=== PATIENT | female | born 1985 | race Caucasian/White ===

== ENCOUNTER 2020-03-09 18:48 | Emergency (ER) | payer OTHER, SELFPAY ==
--- NOTE | ~2020-03-09 | CT_ITS ---
EXAMINATION: CTA BRAIN/CAROTID DATE: 03/09/2020 21:55 INDICATION: 4 weeks of severe headache. Visual changes. TECHNIQUE: Computed tomographic angiography (CTA) of the head and neck was performed with 100 mL Omni paque-350 intravenous contrast. Multiplanar reconstructions and maximum intensity projection 3D-recon structions of the carotid arteries and of the intracranial arteries were created by the technologist on a separate workstation. Precontrast CT of the head was also obtained. Automated exposure control and iterative reconstruction technique were employed.The dose-length product was 1547.92 mGy-cm. COMPARISON: Head CT dated 09/05/2011 FINDINGS: Carotid arteries: Visualized portion of the aortic arch is normal. No evident plaque with 0% stenosis of the left or ri ght carotid bulbs relative to normal distal artery lumen diameter (NASCET criteria). Cervical soft ti ssues are unremarkable. Anterior fusion at C5-C6 which may be developmental. Head: No acute intracranial hemorrhage, acute infarction or abnormal extra axial fluid collection. Ventricl es are normal and symmetric. No mass/mass effect. No abnormally enhancing lesions identified. The orb its, paranasal sinuses and mastoid air cells are normal. Intracranial arteries There is no hemodynamically significant stenosis in the vertebral, basilar and internal carotid arter ies. Vertebral arteries are codominant. There are no aneurysms identified. Both A1 and P1 segments a re patent. Cerebral arterial arborization appears symmetric. IMPRESSION: 1. No appreciable atherosclerotic plaque with 0% stenosis of the left and right carotid bulbs relativ e to normal distal artery lumen diameter (NASCET criteria). 2. Normal brain. No acute intracranial process. 3. Normal cerebral angiogram with no evident stenosis or aneurysm. Reviewed, dictated and finalized at location A. IMPRESSION: 1. No appreciable atherosclerotic plaque with 0% stenosis of the left and right carotid bulbs relative to normal distal artery lumen diameter (NASCET criteria ). 2. Normal brain. No acute intracranial process. 3. Normal cerebral angiogram with no evident stenosis or aneurysm.
[2020-03-09 18:53] VITALS: BP 116/80; PULSE 81; RESP 18; TEMP 36.4; O2SAT 100
--- NOTE | 2020-03-09 19:50 | ED.HA ---
HPI - Headache General Chief Complaint: Headache Stated Complaint: juárez x 4 weeks Time Seen by Provider: 03/09/20 19:00 Source: patient Mode of arrival: ambulatory Limitations: no limitations History of Present Illness HPI Narrative: This patient is a 34 year old female who presents for evaluation of headache x 4 weeks. She has constant headache located right frontal scalp to right eye and ear that has gradually worsened. She has associated nausea, blurred vision with white spots, watery eye constant for 4 weeks. She denies focal weakness, numbness or tingling. She was evaluated by her PCP on 03/02/20 and she was prescribed sumatriptan and fiorcet. She reports these are not helping so she has come to ER for evaluation. MD elicited complaint: headache Related Data Home Medications Medication Instructions Recorded Confirmed cetirizine 10 mg tablet 10 mg PO DAILY 08/09/19 03/02/20 fluoxetine 40 mg capsule 80 mg PO DAILY cap 08/09/19 03/02/20 norethindrone acetate 1 mg-ethinyl 1 tablet PO DAILY 08/09/19 03/02/20 estradiol 20 mcg tablet Allergies Allergy/AdvReac Type Severity Reaction Status Date / Time duloxetine Allergy Unknown Nausea Verified 03/09/20 18:56 egg Allergy Unknown Nausea Verified 03/09/20 18:56 latex Allergy Unknown Skin Verified 03/09/20 18:56 Reaction mirabegron Allergy Unknown Unknown Verified 03/09/20 18:56 sulfamethizole Allergy Unknown Nausea Verified 03/09/20 18:56 Review of Systems Review of Systems: All systems reviewed & are unremarkable except as noted in HPI and below Constitutional: Constitutional: Denies chills, Denies fever(s) and Denies weakness Eyes: Eyes: Reports change in vision and Reports photophobia ENT: Denies nasal congestion and Denies sore throat Gastrointestinal: Gastrointestinal: Denies abdominal pain, Reports nausea and Denies vomiting Neurologic: Denies dizziness, Reports headache(s), Denies focal weakness, Denies numbness and Denies weakness PMFSH Social History Social History (Reviewed 03/02/20 @ 16:39 by Sheryl Soler [facility]) Smoking status: Never smoker Alcohol intake: never Gender identity (if verbalized by the patient): Female Exam Narrative: Exam Narrative: GENERAL: Well-appearing, well-nourished, and in no acute distress. HEAD: Normocephalic, atraumatic , mild tenderness along right frontal hair line EYES: PERRLA and EOMI, conjunctiva clear without discharge EARS: TM's clear bilaterally without erythema or dullness NOSE: Nares clear, no rhinorrhea or epistaxis THROAT:Mucous membranes moist, Oropharynx normal without erythema, exudate, peritonsillar swelling or fluctuance NECK: Supple, without lymphadenopathy or mass RESPIRATORY: No respiratory distress, Airway patent, Respirations non-labored, Clear to auscultation without rales, rhonchi or wheeze HEART: Regular rate and rhythm. No murmur heard. Normal peripheral pulses. ABDOMEN: Soft, nontender, nondistended, normal active bowel sounds. No masses. No rebound or guarding, No organomegaly. EXTREMITIES: No edema, normal strength with full range of motion. SKIN: Warm, dry, normal color without rash NEURO: Alert and oriented x3. CN 2-12 grossly intact. No focal deficits. PSYCH: Normal mood and affect. Course Reevaluation(s) Reevaluation #1: Patient has normal visual acuity, intra ocular pressure and appears to be localized. No aneursym found, normal eye exam. She was found to have low wbc so may be this is viral causing. pain appears to be along nerve possible branch V1 . Date: 03/10/20 Time: 00:06 Vital Signs Vital signs: Vital Signs Temperature 97.6 F 03/09/20 18:53 Pulse Rate 81 03/09/20 18:53 Respiratory Rate 18 03/09/20 18:53 Blood Pressure 116/80 03/09/20 18:53 Pulse Oximetry 100 03/09/20 18:53 Temperature 97.6 F 03/09/20 18:53 Pulse Rate 78 03/10/20 00:24 Respiratory Rate 18 03/10/20 00:24 Blood Pressure 132/70 03/10/20 00:24 P
[2020-03-09] MEDS: KETOROLAC 30 MG/ML VIAL (*BKC) IV PUSH (20:08)
[2020-03-09] MEDS: METOCLOPRAMIDE HCL INJ 10 MG/2 ML VIAL IV PUSH (20:09)
[2020-03-09] MEDS: LACTATED RINGERS 1,000 ML 999 ML IV CONT (20:11)
[2020-03-09 20:18] VITALS: BP 113/82; PULSE 84; RESP 24; O2SAT 100
[2020-03-09 20:25] LABS: Basophils Percent Auto 0.3 % (0.2-1.2); Eosinophils Percent Auto 0.5 % (0-4.4); Hematocrit 36.6 % (37.0-47.0); Immature Granulocyte Absolute 0.01 K/mm3 (0.00-0.031); Immature Granulocyte Percent A 0.3 % (0-0.5); Lymphocytes Absolute Auto 1.92 K/mm3 (0.9-3.2); Lymphocytes Percent Auto 49.9 % (18.3-44.2); Mean Corpuscular HGB Conc 32.8 g/dl (32-36); Mean Corpuscular Hemoglobin 29.4 pg (26-34); Mean Corpuscular Volume 89.7 fl (80-100); Mean Platelet Volume 9.3 fl (7.4-10.4); Monocytes Absolute Auto 0.3 K/mm3 (0.1-0.6); Neutrophils Absolute Auto 1.6 K/mm3 (1.3-6.7); Platelet Count Result 222 k/mm3 (150-375); Red Blood Count 4.08 M/mm3 (4.2-5.4); Red Cell Distribution Width 13.5 % (11.5-14.5); White Blood Count 3.9 K/mm3 (4.5-10.0)
[2020-03-09 20:39] LABS: Alanine Aminotransferase 17 U/L (4-35); Alkaline Phosphatase 71 U/L (38-126); Aspartate Amino Transferase 28 U/L (14-36); Bilirubin,Total 0.2 mg/dL (0.2-1.3); Blood Urea Nitrogen 10 mg/dL (7-17); CRP 1.1 mg/dL (<1.0); Calcium 8.5 mg/dL (8.4-10.2); Carbon Dioxide 22 mmol/L (22-30); Chloride 106 mmol/L (98-107); Estimated CRCL calculation 79 ml/min; Estimated Glomerular Filt Rate > 60; Glucose 90 mg/dL (65-105); Potassium 3.8 mmol/L (3.4-5.0); Sodium 137 mmol/L (137-145)
[2020-03-09 20:48] LABS: Erythrocyte Sedimentation Rate 20 mm/hr (0-20)
[2020-03-09 22:18] VITALS: BP 94/58; PULSE 84; RESP 18; O2SAT 99
[2020-03-09] MEDS: ONDANSETRON INJ 4 MG/2 ML VIAL IV PUSH (23:05)
[2020-03-09] MEDS: HYDROMORPHONE HCL 1 MG/ML INJ 0.5 MG IV PUSH (23:05)
[2020-03-10 00:24] VITALS: BP 132/70; PULSE 78; RESP 18; O2SAT 98
== END 2020-03-10 00:24 | disposition home or self-care (01) ==
PROVIDERS: Emergency Provider General Practice; PCP Family Medicine
DX: R51 Headache (principal)
CPT/HCPCS: 36415; 70496; 70498; 80053; 81025; 85025; 85652; 86140; 96361; 96374; 96375; 99284; J0131; J1170; J1200; J1885; J2405; J2765; J7120; Q9967

== ENCOUNTER 2020-07-18 22:00 | Emergency (ER) | payer OTHER, SELFPAY ==
--- NOTE | ~2020-07-18 | CT_ITS ---
EXAMINATION: CT abdomen pelvis w con DATE: 07/18/2020 23:20 INDICATION: Left flank pain, nausea, vomiting and diarrhea TECHNIQUE: Computed tomography (CT) of the abdomen and pelvis was performed with 100 cc Omnipaque 350 intravenous contrast. The dose-length product was 591.94 mGy-cm. Automated exposure control and iter ative reconstruction technique were employed. COMPARISON: CT dated 09/02/2019 FINDINGS: Lung bases are normal. Heart size normal. No significant pleural or pericardial effusion. G allbladder is present. No significant vascular abnormality. No lymphadenopathy. The liver, spleen, pancreas, adrenal glands are unremarkable. There are nonobstructing bilateral genevieve l stones. There is a subcentimeter hypodensity of the left kidney, most likely benign cysts. Nonobstr uctive bowel gas pattern. No abnormal pelvic masses or fluid collections. No free air or free fluid. No acute osseous abnormality. IMPRESSION: 1. No acute abdominal abnormality. Reviewed, dictated and finalized at location A.
--- NOTE | ~2020-07-18 | XR_ITS ---
EXAMINATION: XR chest 2V 07/18/2020 23:23 INDICATION: Dyspnea. PROCEDURE: 2 view chest COMPARISON: No prior studies for comparison. FINDINGS: The lungs are clear. The cardiomediastinal silhouette is within normal limits. There are no pleural effusions. There is no pneumothorax suspected. IMPRESSION: 1: NO ACUTE CARDIOPULMONARY DISEASE. Reviewed, dictated and finalized at location A.
[2020-07-18 22:03] VITALS: BP 135/84; PULSE 79; RESP 14; TEMP 36.7; O2SAT 99
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
[2020-07-18 22:42] LABS: Basophils Percent Auto 0.2 % (0.2-1.2); Eosinophils Percent Auto 0.7 % (0-4.4); Hematocrit 38.7 % (37.0-47.0); Hemoglobin 12.8 g/dL (12.0-15.0); Lymphocytes Absolute Auto 2.04 K/mm3 (0.9-3.2); Lymphocytes Percent Auto 44.6 % (18.3-44.2); Mean Corpuscular HGB Conc 33.1 g/dl (32-36); Mean Corpuscular Hemoglobin 30.4 pg (26-34); Mean Corpuscular Volume 91.9 fl (80-100); Mean Platelet Volume 9.3 fl (7.4-10.4); Monocytes Absolute Auto 0.4 K/mm3 (0.1-0.6); Monocytes Percent Auto 7.7 % (2.6-8.5); Neutrophils Absolute Auto 2.1 K/mm3 (1.3-6.7); Neutrophils Percent Auto 46.8 % (45.5-73.1); Platelet Count Result 192 k/mm3 (150-375); Red Blood Count 4.21 M/mm3 (4.2-5.4); Red Cell Distribution Width 13.2 % (11.5-14.5); White Blood Count 4.6 K/mm3 (4.5-10.0)
[2020-07-18] MEDS: SODIUM CHLORIDE 0.9% IV 1,000 ML 999 ML IV CONT (22:49)
[2020-07-18 22:53] LABS: Alanine Aminotransferase 18 U/L (4-35); Alkaline Phosphatase 66 U/L (38-126); Anion Gap 7 mmol/L (8-16); Aspartate Amino Transferase 30 U/L (14-36); Bilirubin,Total 0.4 mg/dL (0.2-1.3); Blood Urea Nitrogen 9 mg/dL (7-17); Calcium 8.4 mg/dL (8.4-10.2); Carbon Dioxide 27 mmol/L (22-30); Chloride 103 mmol/L (98-107); Estimated CRCL calculation 82 ml/min; Estimated Glomerular Filt Rate > 60; Glucose 87 mg/dL (65-105); Potassium 3.5 mmol/L (3.4-5.0); Sodium 137 mmol/L (137-145)
[2020-07-18] MEDS: MORPHINE SULFATE (*CRX) 4 MG/ML INJ IV PUSH (22:53)
[2020-07-18] MEDS: ONDANSETRON INJ 4 MG/2 ML VIAL IV PUSH (22:53)
[2020-07-18 22:56] VITALS: BP 117/80; PULSE 80; RESP 16; O2SAT 100
[2020-07-18 23:21] LABS: Add Urine Microscopic? YES; Appearance Urine Cloudy (Clear); Bacteria Urine Trace /hpf; Bilirubin Urine Negative (Negative); Blood Urine 1+ (Negative); Color Urine Yellow (Yellow); Glucose Urine UA Negative (Negative); Ketones Urine Negative (Negative); Leukocyte Esterase Ur 3+ LEU/UL (Negative); Mucus Urine Moderate /lpf; Nitrate Urine Negative (Negative); Protein Urine 1+ mg/dL (Negative); Squamous Epithelial Cell Urine Many /hpf (Few); Urobilinogen Urine Negative mg/dL (<2.0); WBC Urine 31-50 /hpf
[2020-07-18 23:31] LABS: Specific Grav Ur 1.043 (1.001-1.035)
[2020-07-19 00:59] VITALS: BP 128/72; PULSE 68; RESP 16; O2SAT 99
== END 2020-07-19 01:00 | disposition home or self-care (01) ==
PROVIDERS: Emergency Provider Emergency Medicine; PCP Family Medicine
DX: N30.01 Acute cystitis with hematuria (principal); Z87.442 Personal history of urinary calculi
CPT/HCPCS: 36415; 71046; 74177; 80053; 81001; 81025; 85025; 87086; 96361; 96365; 96375; 99284; J0131; J0696; J2270; J2405; J7030; Q9967

== ENCOUNTER 2020-08-20 02:01 | Emergency (ER) | payer OTHER, SELFPAY ==
[2020-08-20 02:03] VITALS: BP 121/97; PULSE 72; RESP 16; TEMP 36.2; O2SAT 100
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
[2020-08-20] MEDS: PROCHLORPERAZINE EDISYLATE 10 MG/2 ML VIAL IV PUSH (02:34)
[2020-08-20] MEDS: KETOROLAC 30 MG/ML VIAL (*BKC) IV PUSH (02:35)
[2020-08-20] MEDS: diphenhydrAMINE HCl INJ 50 MG/ML VIAL IV PUSH ×2 (02:36→02:53)
[2020-08-20] MEDS: DEXAMETHASONE SOD PHOS INJ 4 MG/ML VIAL 10 MG IV PUSH (02:38)
[2020-08-20 02:47] VITALS: BP 125/78
[2020-08-20 02:49] VITALS: O2SAT 98
[2020-08-20 03:00] VITALS: O2SAT 98
[2020-08-20 03:15] VITALS: O2SAT 98
[2020-08-20] MEDS: METOCLOPRAMIDE HCL INJ 10 MG/2 ML VIAL IV PUSH (03:30)
[2020-08-20] MEDS: SUMAtriptan SUCCINATE 6 MG/0.5 ML VIAL SUB-Q (03:31)
[2020-08-20 05:00] VITALS: BP 126/69; PULSE 68; RESP 16; O2SAT 98
== END 2020-08-20 05:01 | disposition home or self-care (01) ==
PROVIDERS: Emergency Provider Emergency Medicine; PCP Family Medicine
DX: R51.9 Headache, unspecified (principal); Z87.442 Personal history of urinary calculi
CPT/HCPCS: 96372; 96374; 96375; 99284; J0780; J1100; J1200; J1885; J2765; J3030

== ENCOUNTER 2020-09-06 08:03 | Emergency (ER) | payer OTHER, SELFPAY ==
[2020-09-06 08:06] VITALS: BP 132/91; PULSE 88; RESP 20; TEMP 36.8; O2SAT 100
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
[2020-09-06] MEDS: diphenhydrAMINE HCl INJ 50 MG/ML VIAL 25 MG IV PUSH (08:37)
[2020-09-06] MEDS: KETOROLAC 30 MG/ML VIAL (*BKC) IV PUSH (08:37)
[2020-09-06] MEDS: SODIUM CHLORIDE 0.9% IV 1,000 ML 999 ML IV CONT (08:37)
[2020-09-06] MEDS: LORazepam INJ (*CRX) 2 MG/ML VIAL 0.5 MG IV PUSH (08:38)
[2020-09-06] MEDS: METOCLOPRAMIDE HCL INJ 10 MG/2 ML VIAL IV PUSH (08:38)
[2020-09-06 08:40] LABS: Hematocrit 42.7 % (37.0-47.0); Hemoglobin 14.4 g/dL (12.0-15.0); Immature Granulocyte Absolute 0.02 K/mm3 (0.00-0.031); Immature Granulocyte Percent A 0.4 % (0-0.5); Lymphocytes Absolute Auto 1.14 K/mm3 (0.9-3.2); Lymphocytes Percent Auto 21.4 % (18.3-44.2); Mean Corpuscular HGB Conc 33.7 g/dl (32-36); Mean Corpuscular Hemoglobin 30.5 pg (26-34); Mean Corpuscular Volume 90.5 fl (80-100); Mean Platelet Volume 9.7 fl (7.4-10.4); Monocytes Absolute Auto 0.3 K/mm3 (0.1-0.6); Neutrophils Absolute Auto 3.8 K/mm3 (1.3-6.7); Neutrophils Percent Auto 72.2 % (45.5-73.1); Platelet Count Result 232 k/mm3 (150-375); Red Blood Count 4.72 M/mm3 (4.2-5.4); Red Cell Distribution Width 12.6 % (11.5-14.5); White Blood Count 5.3 K/mm3 (4.5-10.0)
[2020-09-06 08:46] LABS: Add Urine Microscopic? YES; Appearance Urine Cloudy (Clear); Bacteria Urine Trace /hpf; Bilirubin Urine Negative (Negative); Blood Urine Negative (Negative); Color Urine Yellow (Yellow); Glucose Urine UA Negative (Negative); Ketones Urine Negative (Negative); Leukocyte Esterase Ur 3+ LEU/UL (Negative); Mucus Urine Rare /lpf; Nitrate Urine Negative (Negative); Protein Urine 1+ mg/dL (Negative); Specific Grav Ur 1.013 (1.001-1.035); Squamous Epithelial Cell Urine Many /hpf (Few); Transitional Epi Cells Urine Rare /hpf (None Seen); Urobilinogen Urine Negative mg/dL (<2.0); WBC Urine >75 /hpf
[2020-09-06 08:58] LABS: Anion Gap 8 mmol/L (8-16); Blood Urea Nitrogen 8 mg/dL (7-17); Calcium 9.3 mg/dL (8.4-10.2); Carbon Dioxide 25 mmol/L (22-30); Chloride 105 mmol/L (98-107); Estimated CRCL calculation 92 ml/min; Estimated Glomerular Filt Rate > 60; Glucose 101 mg/dL (65-105); Sodium 138 mmol/L (137-145)
[2020-09-06 09:58] VITALS: BP 105/71; PULSE 82; RESP 18; O2SAT 100
== END 2020-09-06 10:00 | disposition home or self-care (01) ==
PROVIDERS: Emergency Provider Emergency Medicine; PCP Family Medicine
DX: R51.9 Headache, unspecified (principal); M79.602 Pain in left arm; M79.601 Pain in right arm; M79.605 Pain in left leg; M79.604 Pain in right leg; Z87.442 Personal history of urinary calculi; R82.998 Other abnormal findings in urine
CPT/HCPCS: 36415; 80048; 81001; 85025; 87086; 87088; 96361; 96374; 96375; 99284; J1200; J1885; J2060; J2765; J7030

== ENCOUNTER 2020-10-05 00:54 | Outpatient (CLI) | payer OTHER, SELFPAY ==
[2020-10-05 18:46] LABS: SARS-CoV-2 RNA PCR Negative
== END 2020-10-05 00:55 | disposition home or self-care (01) ==
LOC: ANHCOVIDDT 00:55
PROVIDERS: PCP Family Medicine; Visit Provider Obstetrics & Gynecology
DX: Z01.812 Encounter for preprocedural laboratory examination (principal); Z20.822 Contact with and (suspected) exposure to COVID-19
CPT/HCPCS: C9803; U0003; U0005

== ENCOUNTER 2020-10-05 08:33 | Outpatient (CLI) | payer OTHER, SELFPAY | END 2020-10-05 08:34 | disposition home or self-care (01) | LOC: ANHSURGERY 08:34 | PROVIDERS: PCP Family Medicine; Visit Provider Obstetrics & Gynecology | DX: R10.2 Pelvic and perineal pain (principal) | CPT/HCPCS: 36415; 86850; 86900; 86901 ==

== ENCOUNTER 2020-10-08 02:41 | Day surgery (SDC) | payer OTHER, SELFPAY ==
[2020-10-03 15:22] VITALS: BMI 29.8
[2020-10-08] VITALS (10 sets, daily range): BP systolic 97–126; BP diastolic 70–91; PULSE 71–102; RESP 12–18; TEMP 36.1–36.5; O2SAT 95–100
[2020-10-08] MEDS: ACETAMINOPHEN 500 MG TABLET 1000 MG PO (10:36)
[2020-10-08] MEDS: KETOROLAC 15 MG/ML VIAL (*BKC) IV PUSH (10:49)
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
[2020-10-08] MEDS: LACTATED RINGERS 1,000 ML 30 ML IV CONT ×2 (11:36→12:23)
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
--- NOTE | 2020-10-08 11:42 | WPDHPUPDATE1 ---
History and Physical Update Update Date/Time: 10/08/20 11:42 History and Physical has been reviewed, including an updated exam of the patient. There are NO changes in the patient's condition. Risks, benefits, and alternatives have been discussed and questions answered. Patient agrees to proceed with procedure.
[2020-10-08] MEDS: SCOPOLAMINE 1.5 MG PATCH TRANSDERM (11:44)
[2020-10-08] MEDS: fentaNYL CITRATE INJ (*CRX) 100 MCG/2 ML VIAL 50 MCG IV PUSH (11:44)
--- NOTE | 2020-10-08 12:28 | PM.PROC ---
Procedure Note - Detailed Date of procedure: 10/08/20 Pre-op diagnosis: Pelvic Pain, Endometriosis Cyclic pelvic pain Post-op diagnosis: same Procedure performed: Diagnostic laparoscopy Description of procedure: The patient was taken to the operating room where general endotracheal anesthesia was administered. She was prepared and draped in the usual sterile fashion in the dorsal lithotomy position. The bladder was drained with a red rubber catheter. A sterile speculum was inserted into the vagina and the anterior lip of the cervix was grasped with a single-toothed tenaculum. The acorn uterine manipulator was placed. The speculum was withdrawn. Gloves were changed and attention was turned to the abdomen. An infraumbilical skin incision was made with a scalpel. The abdomen was tented and a 5 millimeter bladeless trocar trocar was advanced under direct laparoscopic visualization. Pneumoperitoneum was administered using carbon dioxide gas. A survey of the pelvis and abdomen yielded the findings noted above. Hemostasis was excellent. The trocar was withdrawn and the gas was allowed to escape. The skin incision was reapproximated using 4-0 Vicryl in interrupted subcuticular fashion. Dermaflex was applied externally. The vaginal instrumentation was withdrawn and hemostasis was excellent here as well. Sponge, lap, needle and instrument counts were correct. The patient was awakened and taken to recovery in stable condition. I was present and scrubbed through the entire procedure. Implants: None Anesthesia: GETA Surgeon: Joseph Camacho MD Estimated blood loss (mL): 5 Drains: No Packing: No Pathology: none sent Complications: None Condition: stable Disposition: PACU Findings: The right upper quadrant anatomy was unremarkable. The vermiform appendix was not able to be visualized. The uterus, bilateral ovaries, bilateral tubes, anterior and posterior cul de sac, bilateral round and uterosacral ligaments were all unremarkable. There was no obvious cause visible to account for the patient's pain. Specifically, there is no finding consistent with endometriosis.
[2020-10-08] MEDS: HYDROmorphone HCL INJ (*CRX) 1 MG/ML SYR 0.5 MG IV PUSH ×7 (12:47→13:38)
[2020-10-08] MEDS: ONDANSETRON INJ 4 MG/2 ML VIAL IV PUSH (13:22)
--- NOTE | 2020-10-08 13:29 | SUR.PHASEI ---
1322; PT C/O NAUSEA. ZOFRAN GIVEN IV. PT STATES PAIN STILL 05/31. PT VERY RELAXED. BLINKING SLOWLY. FLACC=0-1. DILAUDID GIVEN PRN
--- NOTE | 2020-10-08 13:41 | SUR.PHASEI ---
PT AWAKE AND ALERT. STATES SHE HAS BEEN TRYING TO PASS A RT KIDNEY STONE PT STATES SHE SEES A UROLOGIST AND KNOWS SHE HAS A KIDNEY STONE ON THE RIGHT SIDE. STATES PAIN TO ABDOMEN IMPROVING.
[2020-10-08] MEDS: oxyCODONE HCL (*CRX) 5 MG TAB IR PO (14:24)
== END 2020-10-08 14:50 | disposition home or self-care (01) ==
PROVIDERS: PCP Family Medicine; Visit Provider Obstetrics & Gynecology
PROC: (CPT 49320; principal; 2020-10-08 12:00)
DX: R10.2 Pelvic and perineal pain (principal); Z87.442 Personal history of urinary calculi; N81.89 Other female genital prolapse
CPT/HCPCS: 49320; 36415; 86850; 86900; 86901; A9270; C9803; J0330; J1100; J1170; J1885; J2250; J2405; J2704; J3010; J7120; U0003; U0005

== ENCOUNTER 2020-10-22 17:39 | Emergency (ER) | payer OTHER, SELFPAY ==
--- NOTE | ~2020-10-22 | CT_ITS ---
EXAMINATION: CT abdomen pelvis wo con DATE: 10/22/2020 18:13 INDICATION: Abdomen pain. History of kidney stones. Left flank pain. TECHNIQUE: Computed tomography (CT) of the abdomen and pelvis was performed without intravenous contr ast. The dose-length product was 534.95 mGy-cm. Automated exposure control and iterative reconstructi on technique were employed. COMPARISON: CT dated 07/18/2020 FINDINGS: Lung bases are unremarkable. Heart size normal. No significant pleural or pericardial effus ion. No significant vascular abnormality. No lymphadenopathy The liver, spleen, pancreas, adrenal glands are unremarkable. Gallbladder is present. Nonobstructive bowel gas pattern. There are nonobstructing renal stones bilaterally. No ureteral stones or hydroneph rosis. IMPRESSION: 1. No acute abdominal abnormality. 2: Nonobstructing bilateral nephrolithiasis. Reviewed, dictated and finalized at location A.
--- NOTE | ~2020-10-22 | XR_ITS ---
XR abdomen/kub 1V 10/22/2020 18:20 Indication: Left-sided flank pain Procedure: KUB Comparison: Comparison to multiple prior studies sequentially, with oldest reviewed study dated 11/09. Findings: There are bilateral renal stones. Bowel gas pattern nonobstructive. Lung bases unremarkable . No acute osseous abnormality. Impression: 1: Bilateral nephrolithiasis. Reviewed, dictated and finalized at location A. EN ROLLER Impression: 1: Bilateral nephrolithiasis.
[2020-10-22 17:44] VITALS: BP 129/80; PULSE 100; RESP 18; TEMP 36.2; O2SAT 100
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
[2020-10-22 18:10] LABS: Basophils Percent Auto 0.3 % (0.2-1.2); Eosinophils Absolute Auto 0.1 K/mm3 (0-0.3); Eosinophils Percent Auto 0.9 % (0-4.4); Hematocrit 41.3 % (37.0-47.0); Hemoglobin 13.6 g/dL (12.0-15.0); Immature Granulocyte Absolute 0.01 K/mm3 (0.00-0.031); Immature Granulocyte Percent A 0.2 % (0-0.5); Lymphocytes Absolute Auto 2.24 K/mm3 (0.9-3.2); Lymphocytes Percent Auto 38.8 % (18.3-44.2); Mean Corpuscular HGB Conc 32.9 g/dl (32-36); Mean Corpuscular Hemoglobin 30.8 pg (26-34); Mean Corpuscular Volume 93.4 fl (80-100); Mean Platelet Volume 9.7 fl (7.4-10.4); Monocytes Absolute Auto 0.4 K/mm3 (0.1-0.6); Monocytes Percent Auto 7.5 % (2.6-8.5); Neutrophils Percent Auto 52.3 % (45.5-73.1); Platelet Count Result 220 k/mm3 (150-375); Red Blood Count 4.42 M/mm3 (4.2-5.4); Red Cell Distribution Width 12.9 % (11.5-14.5); White Blood Count 5.8 K/mm3 (4.5-10.0)
[2020-10-22 18:19] LABS: Add Urine Microscopic? YES; Appearance Urine Cloudy (Clear); Bacteria Urine Trace /hpf; Bilirubin Urine Negative (Negative); Blood Urine Negative (Negative); Color Urine Yellow (Yellow); Glucose Urine UA Negative (Negative); Ketones Urine Negative (Negative); Leukocyte Esterase Ur 1+ LEU/UL (Negative); Mucus Urine Rare /lpf; Nitrate Urine Negative (Negative); Protein Urine Negative (Negative); Specific Grav Ur 1.016 (1.001-1.035); Squamous Epithelial Cell Urine Many /hpf (Few); Urobilinogen Urine Negative mg/dL (<2.0); WBC Urine 16-20 /hpf
[2020-10-22] MEDS: FAMOTIDINE 20 MG/2 ML VIAL IV PUSH (18:22)
[2020-10-22] MEDS: METOCLOPRAMIDE HCL INJ 10 MG/2 ML VIAL IV PUSH (18:22)
[2020-10-22] MEDS: SODIUM CHLORIDE 0.9% IV 1,000 ML 999 ML IV CONT ×2 (18:23)
[2020-10-22 18:30] LABS: Alanine Aminotransferase 54 U/L (4-35); Albumin Level 4.5 g/dL (3.5-5.1); Alkaline Phosphatase 69 U/L (38-126); Anion Gap 10 mmol/L (8-16); Aspartate Amino Transferase 56 U/L (14-36); Bilirubin,Total 0.4 mg/dL (0.2-1.3); Blood Urea Nitrogen 14 mg/dL (7-17); Calcium 8.9 mg/dL (8.4-10.2); Carbon Dioxide 27 mmol/L (22-30); Chloride 103 mmol/L (98-107); Estimated CRCL calculation 73 ml/min; Estimated Glomerular Filt Rate > 60; Glucose 89 mg/dL (65-105); Lipase 146 U/L (23-300); Potassium 3.6 mmol/L (3.4-5.0); Sodium 140 mmol/L (137-145)
[2020-10-22 19:34] VITALS: BP 132/78; PULSE 87; RESP 16; O2SAT 100
== END 2020-10-22 19:36 | disposition home or self-care (01) ==
PROVIDERS: Emergency Medicine Emergency Medical Services; Emergency Provider Emergency Medicine; PCP Family Medicine
DX: N39.0 Urinary tract infection, site not specified (principal); N80.9 Endometriosis, unspecified; Z87.442 Personal history of urinary calculi; N20.0 Calculus of kidney
CPT/HCPCS: 36415; 74018; 74176; 80053; 81001; 81025; 83690; 85025; 87086; 96361; 96374; 96375; 99284; J0131; J2765; J7030

== ENCOUNTER 2022-11-19 08:01 | Outpatient (CLI) | payer BC, SELFPAY ==
--- NOTE | ~2022-11-19 | MR_ITS ---
EXAMINATION: MR brain/brain stem wo con DATE: 11/19/2022 08:47 INDICATION: Headache. TECHNIQUE: Magnetic resonance imaging (MRI) of the brain and brainstem was performed without intraven ous contrast. COMPARISON: Head CT 03/09/2020 FINDINGS: There is no intracranial hemorrhage, acute infarction, or abnormal intracranial mass lesion . The ventricles are normal in size. There is a trace left mastoid effusion. The orbits are normal. T he paranasal sinuses are clear. IMPRESSION: 1. Normal brain. Reviewed, dictated and finalized at location A. RAISING CONSULTANT IMPRESSION: 1. Normal brain.
== END 2022-11-19 08:02 | disposition home or self-care (01) ==
PROVIDERS: PCP Family Medicine; Visit Provider Family Medicine
DX: G43.001 Migraine without aura, not intractable, with status migrainosus (principal)
CPT/HCPCS: 70551

== ENCOUNTER → 2023-07-27 12:12 | Outpatient (CLI) | payer BC, SELFPAY ==
--- NOTE | ~2023-07-27 | XR_ITS ---
EXAM: XR lumbar spine 2-3V DATE: 07/27/2023 12:56 HISTORY: W18.30XA - Fall on same level, unspecified, initial encou... . COMPARISON: 07/08/2019. FINDINGS: 5 nonrib-bearing lumbar-type vertebral bodies. Pedicles intact. Normal vertebral body alig nment. Vertebral body heights preserved. Disc spaces maintained. Normal facets and posterior elements . No fracture or dislocation. Right nephrolithiasis. IMPRESSION: Unremarkable lumbar spine radiograph findings. Reviewed, dictated and finalized at location K. EDGE BANDER
--- NOTE | ~2023-07-27 | XR_ITS ---
EXAM: XR thoracic spine 2V DATE: 07/27/2023 12:57 HISTORY: W18.30XA - Fall on same level, unspecified, initial encou... . COMPARISON: 07/08/2019. FINDINGS: Vertebral body alignment intact. Vertebral body heights preserved. No disc space narrowing . No traumatic malalignment or fracture. Right nephrolithiasis. Visualized lung parenchyma is clear. IMPRESSION: Unremarkable thoracic spine radiograph findings. Reviewed, dictated and finalized at location K. ERSHIP DEVELOPMENT MANAGER
== END ==
PROVIDERS: PCP Nurse Practitioner Family; Visit Provider Nurse Practitioner Family
DX: M54.50 Low back pain, unspecified (principal); M54.6 Pain in thoracic spine; W18.30XA Fall on same level, unspecified, initial encounter
CPT/HCPCS: 72070; 72100

== ENCOUNTER 2024-11-16 20:03 | Emergency (ER) | payer BC, SELFPAY ==
--- NOTE | ~2024-11-16 | XR_ITS ---
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 RESULT: Lines, tubes, and devices: None. Lungs and pleura: Clear. Low volumes with crowding in the lateral view. Cardiomediastinal silhouette: Stable. Other: No acute osseous or upper abdominal finding. IMPRESSION: No acute cardiopulmonary process. Reviewed, dictated and finalized at location K. E SHOP SUPERVISOR
--- OUTSIDE RECORDS SUMMARY | 2024-11-16 20:06 | XMS_ITS | Referral Summary ---
Author Organization [facility] Address [address] [place] [address] Care Team Providers Care Cook Larder Name Role Phone Codey Oswald MD Primary Care Provider [phone] Allergies Active Allergy Reactions Criticality Noted Date Comments Latex Rash Medium 01/23/2023 Prednisolone Sod Ph-Peak Flow Redness Low 2022 Medications SF 5000 Plus 1.1 % cream BRUSH TEETH TWICE DAILY 3 Active FLUoxetine (PROzac) 40 mg capsule Take 2 capsules (80 mg total) by mouth daily 3 Active gabapentin (NEURONTIN) 300 mg capsule Take 1 capsule (300 mg total) by mouth 2 (two) times a day 3 Active hyoscyamine ER (LEVBID) 0.375 mg 12 hr tablet Take 1 tablet (375 mcg total) by mouth 2 (two) times a day 3 Active ondansetron (ZOFRAN) 4 mg tablet Take 1 tablet (4 mg total) by mouth every 8 (eight) hours 3 Active montelukast (SINGULAIR) 10 mg tablet Take 1 tablet (10 mg total) by mouth daily 3 Active clotrimazole (MYCELEX) 10 mg vimal 3 Active azelastine (ASTELIN) 137 mcg (0.1 %) nasal spray USE 1 SPRAY(S) IN EACH NOSTRIL EVERY 12 HOURS 3 Active Ventolin HFA 90 mcg/actuation inhaler INHALE 2 PUFFS BY MOUTH EVERY 4 HOURS NEEDED FOR SHORTNESS OF BREATH OR WHEEZING 3 Active fluorometholone (FML) 0.1 % ophthalmic suspension Administer 1 drop into both eyes daily 10 mL 3 4 Active doxycycline hyclate (VIBRAMYCIN) 50 mg capsule Take 1 capsule (50 mg total) by mouth daily 30 capsule 5 4 Active Active Problems Problem Noted Date Diagnosed Date 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 Assessment & Plan (12/06/2023 6:50 PM CDT): H/o poor ocular surface integrity, highly symptomatic / affecting ADL CTL check Today Difficulty with CTL removal OD only (no issues prior, same lens) Having mid-day haze, needing to remove lenses 2-3 times per day [place] (#[id number]/ [id number]) OD: dot 280, 300um uniform clearance, good mid-peripheral and limbal clearance, good haptics no edge lift, no compression or impingement, mild NaFl spill between quad 3 and 4 OS: dot 225, 150um uniform clearance, good mid-peripheral and limbal clearance, good haptics no edge lift, no compression or impingement, very tr NaFL quad 3 BCVA OD/OS 20/25, no ORx No difficulty with removal in office today Will add 2 channels OD and steepen quad 3 and 4 Try Cellivus prior to insertion CPM (PFATs, FML) RTC for CTL check 3 weeks after receiving new OD lens Ref #[id number] Assessment & Plan (06/19/2023 9:25 AM CDT): H/o poor ocular surface integrity, highly symptomatic / affecting ADL [place] (#[id number] / [id number]) OD: dot 280, 300um uniform clearance, good limbal clearance and haptics 360, no impingement/compression OS: dot 225, 250um uniform clearance, good limbal clearance and haptics 360, no impingement/compression BCVA OD 20/25, OS 20/20 with small ORx OD Reports good comfort/vision and no difficulty with I/R Continue PFATs prn and FML as directed (steroid prior insertion and after removal) RTC 6 months for CTL check. RTC 1-[address] Shipley. Assessment & Plan (05/29/2023 10:04 AM CDT): H/o poor ocular surface integrity, highly symptomatic / affecting ADL [place] (#[id number] / [id number]) OD: dot 280, 300um uniform clearance, good limbal and haptics 360, no - impingement/compression OS: dot 250, 200um uniform clearance, good limbal and haptics 360, no impingement/compression Initial VA OD 20/25, 20/20 (slow) but 20/20 OD/OS with small ORx Trained on I/R and compliance. Dispensed lens today. Stop wearing if increased redness, lens becomes uncomfortable, decrease vision, difficulty removing. RTC 2-3 week for CL check with ORx, sooner prn. RTC with Dr. Shipley as scheduled (06/10/2023) Assessment & Plan (05/01/2023 4:29 PM CDT): Internal referral for scleral lens consult/fitting H/o poor ocular surface integrity, highly symptomatic Good initial fit/comfort OU: OD: dot at 300, 450um uniform clearance, good limbal clearance and haptics, no impingement or compression OS: dot at 240, 100um uniform clearance, good limbal clearance and haptics, no impingement or compression Ordering lenses with lower sag OD (-150um) and higher OS (+150um) Ref# [id number] / [id number] RTC for CL dispense with I/R, sooner prn. RTC with cornea as directed. Blood in urine 06/06/2010 Calculus of kidney 06/06/2010 Social History Tobacco Use Types Packs/Day Years Used Date Smoking Tobacco: Never Smokeless Tobacco: Never Tobacco Cessation:Counseling Given: Not Answered Comments Unknown Sex and Gender Information Value Date Recorded Sex Assigned at Not on file Legal Sex Female 3:18 PM H[employer]ER Gender Identity Female 01/23/2023 11:52 AM CDT Sexual Orientation Not on file Last Filed Vital Signs Vital Sign Reading Time Taken Comments Blood Pressure 98/72 01/23/2023 12:13 PM CDT Pulse 80 01/23/2023 12:13 PM CDT Temperature 36.9 C (98.4 F) 01/23/2023 12:13 PM CDT Respiratory Rate 16 01/23/2023 12:13 PM CDT Oxygen Saturation 98% 01/23/2023 12:13 PM CDT Inhaled Oxygen Concentration - - Weight 77.1 kg (170 lb) 01/23/2023 12:13 PM CDT Height 157.5 cm (5' 2 ) 01/23/2023 12:13 PM CDT Body Mass Index 31.09 01/23/2023 12:13 PM CDT Plan of Treatment Not on file Insurance [employer] [place] [employer] [place] [facility] Care Teams Cook Larder Relationship Specialty Start Date End Date Codey Oswald MD [facility] [address] [place] [address] PCP - General Family Medicine 04/21/23
--- OUTSIDE RECORDS SUMMARY | 2024-11-16 20:06 | XMS_ITS | Encounter Summary ---
Author Organization [facility] Address [address] [place] [address] Care Team Providers Care Mold Insert Changer Name Role Phone Codey Lake MD Unavailable [phone]- [phone] Codey Oswald MD Primary Care Provider [phone]- [phone] Reason for Visit * Reason Onset Date Comments Future Appointment 11/26/2020 Encounter Details Date Type Department Care Team (Late st Contact Info) Description 11/26/2020 Telephone [facility] [address] [place], [place] [id number] Estrella Henson MD [address] [id number] Future Appointment Social History Tobacco Use Types Packs/Day Years Used Date Smoking Tobacco: Never Smokeless Tobacco: Never Alcohol Use Standard Drinks/Week Comments No 0 (1 standard drink = 0.6 oz pur e alcohol) AUDIT-C Answer Date Recorded Q1: How often do you have a drink containing alc ohol? Never 11/20/2020 Average Number of Drinks Not on file 021 Frequency of Binge Drinking Not on file 10/2020 Sex and Gender Information Value Date Recorded Sex Assigned at Not on file Gender Identity Not on file Sexual Orientation Not on file documented as of this encounter Functional Status Functional Status Response Date of Assess ment Is person deaf or have serious hearing difficult y? No 08/19/2016 Is person blind or have serious difficulty seein g? No 08/19/2016 Does person have serious dif ficulty walking/climbing stairs? No 08/19/2016 Does person have difficulty dressing/bathing? No 08/19/2016 Does person have difficulty doing errands alone? No 08/19/2016 Cognitive Status Response Date of Assessm ent Does person have difficulty concentrating/remembering/making decisions? No 08/19/2016 documented as of this encounter Miscellaneous Notes * Telephone Encounter - Brannon Cowart RN - 11/26/2020 10:07 AM CST Denies fever. While talking, had a deep cough and talking w/ Stuffy nose. Questions if she can get more medication for just a couple more days. Reviewed w/ Dr Henson. Agrees to cancel appt today. Will send a couple days of pain medication. Jacqueline's appt cancelled today. Rescheduled f/u appt. HOLDER * Telephone Encounter - Chantelle Macias - 11/26/2020 9:01 AM CST Pt calling to report symptoms: running nose and cough. Pt is not sure if she should keep her appt today? CB #: [phone] HOLDER documented in this encounter Plan of Treatment Not on file documented as of this encounter Visit Diagnoses Not on filedocumented in this encounter Care Teams Mold Insert Changer Relationship Specialty Start Date End Date Codey Oswald MD [address] [place] [phone] PCP - General 09/06/18 MastromichalCodey rose MD [address] [place] [address] JACI LEE [phone] Urology 07/22/16 documented as of this encounter
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
--- OUTSIDE RECORDS SUMMARY | 2024-11-16 20:06 | XMS_ITS | Patient Health Summary ---
Author Organization [facility] Address [address] [place] [address] Care Team Providers Care Clinical Laboratory Aides Teacher Name Role Phone Codey Lake MD Unavailable [phone]- [phone] Codey Oswald MD Primary Care Provider [phone] Note from [facility],non-owned Affiliates and Associated Physician Practices is amultiple site organization consisting of ambulatory clinics and hospital sitesin [place], [place], [place] and [place]. This disclosure is being madepursuant to the Care Everywhere program and may not contain all information available regarding this patient. Last updated 18.[facility] Allergies * Duloxetine(Nausea and/or Vomiting) * Egg Extract [Other](Nausea and/or Vomiting) * Latex(Urticaria) -Medium Criticality * Mirabegron(Other) * Sulfamethoxazole(Nausea and/or Vomiting) Medications * Be aware that medications may not be up to date on this document. Alwaysverify current medications with the patient. * FLUoxetine (PROZAC) 40 MG capsule(Started 06/13/2016) Take 80 mg by mouth once daily 80 mg daily 1 refill left * Cetirizine HCl (ZYRTEC PO) Take 10 mg by mouth once daily * VALACYCLOVIR HCL PO Take 500 mg by mouth as needed * amitriptyline (ELAVIL) 10 MG tablet(Started 10/24/2020) Take 10 mg by mouth every evening * topiramate (TOPAMAX) 25 MG tablet(Started 12/13/2020) Take 25 mg in the AM x 1 week, then 25 mg BID. 1 refill by 12/13/2021 * norethindrone (ORTHO MICRONOR; NOR-QD; NANCI; REUBEN; RADHA-BE; DAYAN; JOLIVETTE) 0.35 MG tablet(Started 01/01/2021) Take 1 (one) tablet by mouth once daily 4 refills by 01/01/2022 * ondansetron (ZOFRAN) 4 MG tablet(Started 01/01/2021) Take 1 (one) tablet by mouth every 6 hours as needed for Nausea/Vomiting * hyoscyamine CR 12hr (LEVBID) 0.375 MG tablet(Started 04/14/2022) Take 1 (one) tablet by mouth every 12 hours For one week then every 12 hours as needed. Active Problems Problem Noted Date Diagnosed Date IBS (irritable bowel syndrom e)-crampy RLQ/LLQ pain-trial paxil 01/21/2017 Major depressive d/o -trial of paxil on gabapent in 01/21/2017 Neuralgia-right leg-improved with gabapentin, worsened with anxiety 01/21/2017 Recurrent nephrolithiasis-calcium (mastromichael is) 07/13/2016 Pelvic pain in female-on gabapentin seeing urolo gy 07/13/2016 Nocturnal leg movements 07/13/2016 Irregular periods-controlled on microgestin 06/22 h/o Bronchospasm (from anxiety?) 07/13/2016 Panic disorder with agoraphobia,OCD,depression-t rial paxil 07/07/2016 Immunizations * TDAP (7yrs+)(Given 11/24/2010) Social History Tobacco Use Types Packs/Day Years [...] Mass Index 32.37 01/10/2021 3:33 PM CDT Medical Devices Implanted Type Area Wringer Operator Device Identifier Shelf Expiration Date Model / Serial / Lot Stent Uret 4.8fr 22-30cm Pgtl Crv Tpr Implanted:Qty: 1 on 08/08/2016 by Codey Lake MD at [facility] Left: Ureter [employer] 02/06/2019 [id number] / / [id number] Set Stent Blk 22cm 6fr .038in 2 Pgtl Crv Implanted:Qty: 1 on 05/24/2019 by Codey Lake MD at [facility] Left: Ureter [employer] 03/30/2022 [id number] / / [id number] Mirena Intrauterine Device Implanted:Qty: 1 on 11/14/2020 by Estrella Henson MD at [facility] N/A: Uterus 02/18/2023 [id number] / [id number] / [id number] Procedures * URINALYSIS AUTO - POINT OF CARE (AMB) STL(Performed 01/10/2021) Performed for Kidney stone * CT CERVICAL SPINE WO CONTRAST(Performed 12/27/2020) Performed for Acute nonintractable headache, unspecified headache type * CT HEAD WO CONTRAST(Performed 12/27/2020) Performed for Acute nonintractable headache, unspecified headache type * HCG URINE QUALITATIVE(Performed 12/27/2020) * BASIC METABOLIC PANEL (CALCIUM TOTAL)(Performed 12/27/2020) * CBC W AUTO DIFFERENTIAL(Performed 12/27/2020) * CARDIAC RHYTHM STRIP ORDER(Performed 11/16/2020) * PATHOLOGY TISSUE EXAM (STL)(Performed 11/14/2020) Performed for Diagnosis unknown * ENDOTRACHEAL TUBE NOTE(Performed 11/14/2020) * NM LAP,DIAGNOSTIC ABDOMEN(Performed 11/14/2020) Performed for Diagnosis unknown * HCG URINE QUAL POCT NOTIFICATION(Performed 11/14/2020) Performed for Pre-op testing * HCG URINE QUALITATIVE - POCT (IP) INTERFACED(Performed 11/14/2020) * CBC W AUTO DIFFERENTIAL(Performed 11/12/2020) Performed for Pre-op testing * SARS-COV-2 (COVID-19) IN HOUSE(Performed 11/12/2020) Performed for Pre-op testing * US RETROPERITONEAL COMPLETE(Performed 05/07/2020) Performed for Flank pain * CULTURE URINE(Performed 05/03/2020) Performed for Urinary tract infection without hematuria, site unspecified * US RETROPERITONEAL COMPLETE(Performed 02/27/2020) Performed for Flank pain * INFLUENZA A+B - POINT OF CARE (AMB)(Performed 11/11/2019) Performed for Tonsillitis * STREP A SCREEN - POINT OF CARE (AMB) STL(Performed 11/11/2019) Performed for Tonsillitis * US RETROPERITONEAL COMPLETE(Performed 07/06/2019) Performed for Flank pain * URINALYSIS AUTO - POINT OF CARE (AMB) STL(Performed 06/03/2019) Performed for Recurrent nephrolithiasis-calcium (mastromichaelis) * CARDIAC RHYTHM STRIP ORDER(Performed 05/25/2019) * FL UROGRAM RETROGRADE(Performed 05/24/2019) Performed for Kidney pain * CULTURE URINE(Performed 05/24/2019) Performed for Diagnosis unknown * STONE ANALYSIS QUANT(Performed 05/24/2019) Performed for Diagnosis unknown * GROSS EXAM PATHOLOGY (STL)(Performed 05/24/2019) Performed for Kidney pain * NM CYSTO/URETERO/PYELOSCOPY W/LITHOTRIPSY(Performed 05/24/2019) Performed for N20.0 * HCG URINE QUALITATIVE - POCT (IP) INTERFACED(Performed 05/24/2019) * HCG URINE QUAL POCT NOTIFICATION(Performed 05/24/2019) Performed for Preoperative examination * CT ABDOMEN PELVIS WO CONTRAST(Performed 05/11/2019) Performed for Kidney stone * IMAGING/RADIOLOGY/XRAY RESULTS ORDER(Performed 04/09/2019) * US RETROPERITONEAL COMPLETE(Performed 03/23/2019) Performed for Kidney stone * MRI LUMBAR SPINE WWO CONTRAST(Performed 05/13/2017) Performed for Kidney stone, Bilateral flank pain * CULTURE URINE(Performed 05/05/2017) Performed for Urinary tract infection without hematuria, site unspecified * URINALYSIS - POINT OF CARE(Performed 05/05/2017) Performed for Urinary tract infection without hematuria, site unspecified * XR ABDOMEN KUB(Performed 05/05/2017) Performed for Kidney stone * IMAGING/RADIOLOGY/XRAY RESULTS ORDER(Performed 04/22/2017) * XR ABDOMEN KUB(Performed 09/16/2016) Performed for Kidney stone * STONE ANALYSIS QUANT(Performed 09/03/2016) Performed for Kidney stone * LAB RESULTS ORDER(Performed 09/03/2016) * CARDIAC RHYTHM STRIP ORDER(Performed 08/21/2016) * EXTRACORPOREAL SHOCK WAVE LITHOTRIPSY (ESWL)(Performed 08/19/2016) Performed for Stone, kidney * HCG URINE QUALITATIVE - POINT OF CARE(Performed 08/19/2016) * CARDIAC RHYTHM STRIP ORDER(Performed 08/11/2016) * CULTURE URINE(Performed 08/11/2016) Performed for Urinary tract infection with hematuria, site unspecified * URINALYSIS - POINT OF CARE(Performed 08/11/2016) Performed for Kidney stone * OXYGEN(Performed 08/08/2016) * FL UROGRAM RETROGRADE(Performed 08/08/2016) Performed for Kidney stone * CULTURE URINE(Performed 08/08/2016) Performed for Kidney stone * CYSTOSCOPY WITH INSERTION URETERAL STENT(Performed 08/08/2016) Performed for Kidney stone * XR ABDOMEN KUB(Performed 08/08/2016) Performed for Flank pain, acute, Nephrolithiasis-calcium * HCG URINE QUALITATIVE - POINT OF CARE(Performed 08/08/2016) * XR ABDOMEN KUB(Performed 07/31/2016) Performed for Kidney stone * STONE ANALYSIS QUANT(Performed 07/28/2016) Performed for Kidney stone * LAB RESULTS ORDER(Performed 07/28/2016) * CARDIAC RHYTHM STRIP ORDER(Performed 07/23/2016) * OXYGEN(Performed 07/22/2016) * EXTRACORPOREAL SHOCK WAVE LITHOTRIPSY (ESWL)(Performed 07/22/2016) Performed for Kidney stone * XR ABDOMEN KUB(Performed 07/22/2016) Performed for Flank pain, acute, Nephrolithiasis-calcium * HCG URINE QUALITATIVE - POINT OF CARE(Performed 07/22/2016) * CT ABDOMEN PELVIS WO CONTRAST(Performed 07/16/2016) Performed for Kidney stone * XR ABDOMEN KUB(Performed 07/16/2016) Performed for Kidney stone * URINALYSIS - POINT OF CARE(Performed 07/16/2016) Performed for Kidney stone, Urinary frequency * IMAGING/RADIOLOGY/XRAY RESULTS ORDER(Performed 07/10/2016) * URINALYSIS MICROSCOPIC ONLY REFLEXED(Performed 07/07/2016) Performed for Nephrolithiasis-calcium * URINALYSIS REFLEX MICROSCOPIC REFLEX CULTURE(Performed 07/07/2016) Performed for Nephrolithiasis-calcium * CBC W AUTO DIFFERENTIAL(Performed 07/07/2016) Performed for Nephrolithiasis-calcium * URIC ACID BLOOD(Performed 07/07/2016) Performed for Nephrolithiasis-calcium * COMPREHENSIVE METABOLIC PANEL(Performed 07/07/2016) Performed for Nephrolithiasis-calcium * IMAGING/RADIOLOGY/XRAY RESULTS ORDER(Performed 03/03/2016) Results * URINALYSIS AUTO - POINT OF CARE (AMB) STL (01/10/2021 4:36 PM CDT) Only the most recent of2 resultswithin the time period is included. Clarity UA POCT na [facility] Color UA POCT na [facility] Leukocyte UA negative Negative [facility] Nitrite UA POCT negative Negative [facility] Urobilinogen UA 0.2 0.1 - 1.0 [facility] Comment:mg/dl Protein UA POCT neagtive Negative [facility] pH UA 7.0 5.0 - 8.[address] [facility] Blood UA negative Negative [facility] Specific Leonard UA POCT 1.015 1.002 - 1.[address] [facility] Ketone UA negative Negative [facility] Bilirubin UA POCT negative Negative [facility] Glucose UA negative Negative [facility] Expiration Date 09/28/2022 [facility] Lot # [id number] [facility] QC Verified Yes Yes [facility] Urine URINE / Unknown 01/10/2021 4 :36 PM CDT Codey Lake MD LAB - POINT OF CARE ORDERABLES [facility] [address] [phone] * CT CERVICAL SPINE WO CONTRAST (12/27/2020 4:33 PM CDT) Anatomical Region Laterality Modality Spine Computed Tomogra phy 12/28/2020 7:0 7 AM CDT Impressions 12/28/2020 7:52 AM CDT IMPRESSION: No acute intracranial abnormality. No cervical spine fracture. I, Dr. ARLIN GRIFFITHS have personally reviewed and interpreted this examination/study. This report was electronically signed by ARLIN GRIFFITHS on 12/28/2020 7:52 AM . Narrative 12/28/2020 7:52 AM CDT EXAMINATION: Computed tomography (CT) of the head without intravenous contrast CT of the cervical spine without intravenous contrast HISTORY: R51.9: Acute non intractable headache, unspecified headache type TECHNIQUE: CT of the head and cervical spine was performed without contrast according to standard protocol. COMPARISON: No prior study is available for comparison at the time of this dictation.. FINDINGS: Head: There is no acute hemorrhage. Lateral ventricles are slightly asymmetric with the left side slightly larger, likely normal variant. There is no hydrocephalus, midline shift or extra-axial fluid collection. There is no significant parenchymal abnormality. The paranasal sinuses and tympanomastoid cavities are aerated. The orbits are unremarkable. There is no skull fracture. Cervical spine: There is no fracture. The prevertebral soft tissues are within normal limits. There is straightening of the cervical spine without subluxation. There is osseous fusion of the C5 and C6 vertebral bodies, presumed developmental. There are no aggressive appearing lytic or sclerotic lesions. There is no spinal canal or foraminal stenosis. Procedure Note Arlin Griffiths MD - 12/28/2020 EXAMINATION: Computed tomography (CT) of the head without intravenous contrast CT of the cervical spine without intravenous contrast HISTORY: R51.9: Acute non intractable headache, unspecified headachetype TECHNIQUE: CT of the head and cervical spine was performed without contrast according to standard protocol. COMPARISON: No prior study is available for comparison at the time ofthis dictation.. FINDINGS: Head: There is no acute hemorrhage. Lateral ventricles are slightly asymmetric with the left side slightly larger, likely normal variant. There is no hydrocephalus, midline shift or extra-axial fluid collection. There isno significant parenchymal abnormality. The paranasal sinuses and tympanomastoid cavities are aerated. The orbits are unremarkable. Thereis no skull fracture. Cervical spine: There is no fracture. The prevertebral soft tissues are within normal limits. There is straightening of the cervical spine without subluxation. Thereis osseous fusion of the C5 and C6 vertebral bodies, presumeddevelopmental. There are no aggressive appearing lytic or sclerotic lesions. There isno spinal canal or foraminal stenosis. IMPRESSION: No acute intracranial abnormality. No cervical spine fracture. IDr. ARLIN have personally reviewed and interpreted this examination/study. This report was electronically signed by ARLIN GRIFFITHS on 12/28/2020 7:[address] AM. Rani H[address] MD CT ORDERABLES * CT HEAD WO CONTRAST (12/27/2020 4:33 PM CDT) Anatomical Region Laterality Modality Head Computed Tomogra phy 12/28/2020 7:07 AM CDT Impressions 12/28/2020 7:52 AM CDT IMPRESSION: No acute intracranial abnormality. No cervical spine fracture. Dr. ARLIN Amezcua have personally reviewed and interpreted this examination/study. This report was electronically signed by ARLIN GRIFFITHS on 12/28/2020 7:52 AM . Narrative 12/28/2020 7:52 AM CDT EXAMINATION: Computed tomography (CT) of the head without intravenous contrast CT of the cervical spine without intravenous contrast HISTORY: R51.9: Acute non intractable headache, unspecified headache type TECHNIQUE: CT of the head and cervical spine was performed without contrast according to standard protocol. COMPARISON: No prior study is available for comparison at the time of this dictation.. FINDINGS: Head: There is no acute hemorrhage. Lateral ventricles are slightly asymmetric with the left side slightly larger, likely normal variant. There is no hydrocephalus, midline shift or extra-axial fluid collection. There is no significant parenchymal abnormality. The paranasal sinuses and tympanomastoid cavities are aerated. The orbits are unremarkable. There is no skull fracture. Cervical spine: There is no fracture. The prevertebral soft tissues are within normal limits. There is straightening of the cervical spine without subluxation. There is osseous fusion of the C5 and C6 vertebral bodies, presumed developmental. There are no aggressive appearing lytic or sclerotic lesions. There is no spinal canal or foraminal stenosis. Procedure Note Arlin Griffiths MD - 12/28/2020 EXAMINATION: Computed tomography (CT) of the head without intravenous contrast CT of the cervical spine without intravenous contrast HISTORY: R51.9: Acute non intractable headache, unspecified headachetype TECHNIQUE: CT of the head and cervical spine was performed without contrast according to standard protocol. COMPARISON: No prior study is available for comparison at the time ofthis dictation.. FINDINGS: Head: There is no acute hemorrhage. Lateral ventricles are slightly asymmetric with the left side slightly larger, likely normal variant. There is no hydrocephalus, midline shift or extra-axial fluid collection. There isno significant parenchymal abnormality. The paranasal sinuses and tympanomastoid cavities are aerated. The orbits are unremarkable. Thereis no skull fracture. Cervical spine: There is no fracture. The prevertebral soft tissues are within normal limits. There is straightening of the cervical spine without subluxation. Thereis osseous fusion of the C5 and C6 vertebral bodies, presumeddevelopmental. There are no aggressive appearing lytic or sclerotic lesions. There isno spinal canal or foraminal stenosis. IMPRESSION: No acute intracranial abnormality. No cervical spine fracture. I, Dr. ARLIN GRIFFITHS have personally reviewed and interpreted this examination/study. This report was electronically signed by ARLIN GRIFFITHS on 12/28/2020 7:[address] AM[address] R[address] MD CT ORDERABLES * HCG URINE QUALITATIVE (12/27/2020 3:31 PM CDT) Test Urine Negative Negative 12/27/2020 4:15 PM T [facility] Urine URINE / Unknown Collection / Unknown 12/27/2020 3:31 PM CDT 12/27/2020 3:37 PM CDT Rani Hager MD LAB - URINALYSIS ORD ERABLES [facility] [address] [place] [address], [facility] [phone] * CBC W AUTO DIFFERENTIAL (12/27/2020 3:30 PM CDT) Only the most recent of3 resultswithin the time period is included. WBC 5.4 3.5 - 10.5 10 3/uL 12/27/2020 3:48 PM [facility] RBC 4.76 3.90 - 5.00 10 6/uL 12/27/2020 3:48 PM [facility] Hemoglobin 14.3 12.0 - 15.5 g/dL 12/27/2020 3:48 PM [facility] Hematocrit 42.9 35.0 - 45.0 % 12/27/2020 3:48 PM [facility] MCV 90.1 81.0 - 97.0 fL 12/27/2020 3:48 PM [facility] MCH 30.0 28.0 - 34.0 pg 12/27/2020 3:48 PM [facility] MCHC 33.3 32.0 - 36.0 g/dL 12/27/2020 3:48 PM [facility] Platelet Count 213 150 - 400 10 3/uL 12/27/2020 3:48 PM [facility] RDW-SD 40.4 36.0 - 50.0 fL 12/27/2020 3:48 PM [facility] RDW-CV 12.2 11.2 - 14.8 % 12/27/2020 3:48 PM [facility] MPV 9.9 9.3 - 12.8 fL 12/27/2020 3:48 PM [facility] nRBC Absolute 0.00 0 10 3/uL 12/27/2020 3:48 PM T [facility] nRBC Auto 0.0 0 /100 WBC 12/27/2020 3:48 PM [facility] Neutrophils % 53.6 35.0 - 70.0 % 12/27/2020 3:48 PM [facility] Lymphocytes % 37.8 19.7 - 55.1 % 12/27/2020 3:48 PM [facility] Monocytes % 7.6 3.0 - 15.0 % 12/27/2020 3:48 PM [facility] Eosinophils % 0.4 0.0 - 6.0 % 12/27/2020 3:48 PM [facility] Basophil % 0.4 0.0 - 1.5 % 12/27/2020 3:48 PM [facility] Neutrophils Absolute 2.9 1.6 - 7.0 10 3/uL 12/27/2020 3:48 PM [facility] Lymphocyte Absolute 2.0 0.8 - 2.9 10 3/uL 12/27/2020 3:48 PM [facility] Monocytes Absolute 0.41 0.14 - 0.66 10 3/uL 12/27/2020 3:48 PM [facility] Eosinophils Absolute 0.02 0.00 - 0.45 10 3/uL 12/27/2020 3:48 PM [facility] Basophils Absolute 0.02 0.00 - 0.06 10 3/uL 12/27/2020 3:48 PM [facility] Immature Granulocytes % 0.2 0.0 - 1.0 % 12/27/2020 3:48 PM [facility] Blood BLOOD SPECIMEN / Unknown Venipuncture / Unknown 12/27/2020 3:30 PM CDT 12/27/2020 3:38 PM CDT Rani Hager MD LAB - HEMATOLOGY ORD ERABLES [facility] [address] [place] [address], [facility] [phone] * BASIC METABOLIC PANEL (CALCIUM TOTAL) (12/27/2020 3:30 PM CDT) BUN 8 7 - 26 mg/dL 12/27/2020 4:04 PM [facility] Creatinine 0.7 0.6 - 1.2 mg/dL 12/27/2020 4:04 PM [facility] Sodium 140 136 - 145 mmol/L 12/27/2020 4:04 PM [facility] Potassium 3.6 3.5 - 4.5 mmol/L 12/27/2020 4:04 PM [facility] Chloride 105 98 - 107 mmol/L 12/27/2020 4:04 PM [facility] CO2 23 22 - 29 mmol/L 12/27/2020 4:04 PM [facility] Glucose 92 70 - 115 mg/dL 12/27/2020 4:04 PM [facility] Calcium 8.8 8.4 - 10.2 mg/dL 12/27/2020 4:04 PM [facility] Anion Gap 16 8 - 18 12/27/2020 4:04 PM [facility] BUN/Creatinine Ratio 11 7 - 23 12/27/2020 4:04 PM [facility] Osmolality Calculated 288 270 - 300 mOsm/kg 12/27/2020 4:04 PM [facility] eGFR >60 >60 mL/min/1.7 3 m2 12/27/2020 4:04 PM [facility] Blood BLOOD SPECIMEN / Unknown Venipuncture / Unknown 12/27/2020 3:30 PM CDT 12/27/2020 3:38 PM CDT Rani Hager MD LAB - CHEMISTRY ORDE [place] [facility] Organization Address City/State/ZIP Co de Phone Number [facility] [address] [place] [address], [facility] [phone] * CARDIAC RHYTHM STRIP ORDER (11/16/2020 6:50 PM OUTSOLE TACKER) Only the most recent of5 resultswithin the time period is included. Narrative 11/16/2020 6:50 PM OUTSOLE TACKER Ordered by an unspecified provider. Scanned Document CARDIAC SERVICES ORD ERABLES * PATHOLOGY TISSUE EXAM (STL) (11/14/2020 1:11 PM OUTSOLE TACKER) Case Report Surgical Pathology Report Case: [id number] Authorizing Provider: Estrella Henson MD Collected: 11/14/2020 01:11 PM Ordering Location: [facility] Received: 11/14/2020 02:29 PM Pathologist: Gisela Magaña MD Specimens: A) - Ligament, LEFT UTEROSACRAL LIGAMENT B) - Ligament, LEFT UTEROSACRAL LIGAMENT 2 C) - Tissue, LEFT POSTERIOR CUL DE SAC LESION D) - Tissue, POSTERIOR CUL DE SAC 11/16/2020 2:01 PM OUTSOLE TACKER [facility] Final Diagnosis Peritoneum, left uterosacral ligament, biopsy (A) - No histopathologic abnormality Peritoneum, left uterosacral ligament, biopsy (B) - Adhesions and fibrin Peritoneum, left posterior cul de sac lesion, biopsy (C) - Adhesions and focal benign mesothelial hyperplasia Peritoneum, right posterior cul de sac, biopsy (D) - Adhesions, focal 11/16/2020 2:01 PM OUTSOLE TACKER [facility] Clinical History The patient is a 35-year-old woman who underwent laparoscopic excision of endometriosis. 11/16/2020 2:01 PM OUTSOLE TACKER [facility] Gross Description The requisition and specimen are identified with the patient's name and date of . Received in formalin, specimen A, left utero-sacral liga+, is a xsoh-pouyl-puc fibrous tissue fragment, 0.8 x 0.6 x 0.1 cm. Entirely submitted in cassette A1. Received in formalin, specimen B, left utero-sacral lig+, is a lnos-sitiy-sbh fibrous tissue fragment, 0.7 x 0.4 x 0.1 cm. Entirely submitted in cassette B1. Received in formalin, specimen C, left posterior cul-de+, is a pink-dumont, fibrous membranous tissue fragment, 1.2 x 0.3 x 0.1 cm. Entirely submitted in cassette C1. Received in formalin, specimen D, posterior cul-de-sac right, is a xkmt-eutdgs-omr fibrofatty tissue fragment, 1.1 x 0.9 x 0.2 cm. Entirely submitted in cassette D1. LJ/ns 11/16/2020 2:01 PM [facility] Microscopic Description Microscopic examination substantiates the above diagnosis. 11/16/2020 2:01 PM [facility] Disclaimer All histochemical and/or immunohistochemical results are interpreted with controls that demonstrate appropriate staining reactions before reporting results. Note on use of immunocytochemistry reagents: This test was developed and its performance characteristic determined by [facility], Department of Laboratory Medicine. It has not been cleared or approved by the U.S. Food and Drug Administration (FDA). The FDA has determined that such clearance or approval is not necessary. The test is used for clinical purpose. It should not be regarded as investigational or for research. This laboratory is certified to perform high complexity testing. The performance characteristics of the IHC/NOÉ assays have been validated on formalin-fixed paraffin embedded tissues only. The assays have not been validated on decalcified tissues. Results should be interpreted with caution. 11/16/2020 2:01 PM [facility] Embedded Images 11/16/2020 2:01 PM [facility] Pathology/Cytology ENTIRE LIGAMENT / Unknown 11/14/2020 1:11 PM OUTSOLE TACKER 11/14/2020 2:29 PM OUTSOLE TACKER Comment:Pre-op diagnosis: Diagnosis unknown [R69] Miscellaneous samples (specimen) ENTIRE LIGAMENT / Unknown 11/14/2020 1:13 PM OUTSOLE TACKER 11/14/2020 2:29 PM OUTSOLE TACKER Comment:Pre-op diagnosis: Diagnosis unknown [R69] Miscellaneous samples (specimen) TISSUE SPECIMEN / Unknown 11/14/2020 1:15 PM OUTSOLE TACKER 11/14/2020 2:29 PM OUTSOLE TACKER Comment:Pre-op diagnosis: Diagnosis unknown [R69] Miscellaneous samples (specimen) TISSUE SPECIMEN / Unknown 11/14/2020 1:22 PM OUTSOLE TACKER 11/14/2020 2:29 PM OUTSOLE TACKER Comment:Pre-op diagnosis: Diagnosis unknown [R69] Estrella Henson MD LAB - PATHOLOGY/CYTO LOGY ORDERABLES [facility] [address] [place] [address] * ETT LINE PERFORMABLE (11/14/2020 12:36 PM OUTSOLE TACKER) Narrative Richard De Anda MD - 11/14/2020 12:36 PM OUTSOLE TACKER Pancho Marina APRN-CRNA 11/14/2020 12:37 PM Endotracheal Tube Placement: Patient Location: OR. Intubation Event Date/Time: 11/14/2020 12:22 PM Procedure: intubation (26940). Procedure Section: Sedation: under general anesthesia. Indications for Airway Management: anesthesia Induction: standard IV Patient Position: sniffing Mask Ventilation: not attempted. Blade Type: Ema Blade Size: 3 Laryngoscopy View: grade 1 (full cords) Intubation Adjuncts: cricoid pressure and stylet Tube: endotracheal tube Placement: oral Tube type: cuff - inflated Tube Size (MM): 7 Depth of Insertion (CM): 21 Measured From: teeth Cuff volume (mL): 6 Cuff inflation pressure (CM H20): 20 Cuff Inflated With: air Number of Attempts: 1. Placement Verified By: direct visualization, bilateral breath sounds, chest auscultation and CO2 monitor CXR Findings: ETT in proper place. Tube secured with: adhesive tape. Dentition unchanged? Yes Difficult Airway? No. Procedure Start Time: 11/14/2020 12:22 PM. Procedure End Time: 11/14/2020 12:23 PM. Procedure Total Time: 1 minutes. Staff Section Anesthesia Provider: Pancho Marina APRN-CRNA, Performed the procedure Additional Comments: Dentition/oral mucosa unchanged from pre op exam after DVOI.. Richard De Anda MD GENERAL ANESTHESIA O RDERABLES * HCG URINE QUAL POCT NOTIFICATION (11/14/2020 9:31 AM OUTSOLE TACKER) Only the most recent of2 resultswithin the time period is included. Comment Notification Label Only - See Separate Report 11/14/2020 9:31 AM OUTSOLE TACKER [facility] Urine URINE / Unknown 8:12 AM OUTSOLE TACKER Richard De Anda MD LAB - URINALYSIS ORD ERABLES [facility] [address] [place] [address] * HCG URINE QUALITATIVE - POCT (IP) INTERFACED (11/14/2020 8:16 AM OUTSOLE TACKER) Only the most recent of2 resultswithin the time period is included. HCG Qual Urine Negative Negative 11/14/2020 8:23 AM OUTSOLE TACKER [facility] Urine URINE / Unknown 11/14/2020 8 :16 AM OUTSOLE TACKER 11/14/2020 8:22 AM OUTSOLE TACKER Estrella Henson MD LAB - POINT OF CARE ORDERABLES [facility] [address] [place] [address] * SARS-COV-2 (COVID-19) IN HOUSE (11/12/2020 2:36 PM OUTSOLE TACKER) Pathologist [facility] COVID-19 PCR Not detected Not detected 11/12/2020 11:10 PM OUTSOLE TACKER [facility] MICROBIOLOGY Microbiology SPECIMEN FROM NASOPHARYNGEAL STRUCTURE / Unknown Collection / Unknown 11/12/2020 2:36 PM OUTSOLE TACKER 11/12/2020 3:05 PM OUTSOLE TACKER Narrative [facility] - 11/12/2020 11:10 PM OUTSOLE TACKER This nucleic acid amplification assay performance was validated by [facility]. This test has been authorized by the Food and Drug administration (FDA)under an Emergency Use Authorization (EUA). This test has been validated in accordance with the FDA's guidance document Policy for Diagnostic Testing in Laboratories Certified to perform High Complexity Testing under CLIA prior to Emergency Use Authorization for Coronavirus Disease-2019 during the Public Health Emergency issued on November 19, 2019. FDA independent review of this validation is pending. This test is only authorized for the duration of time the declaration that circumstances exist justifying the authorization of emergency use of in vitro diagnostic tests for detection of SARS-CoV-2 virus and/or diagnosis of COVID-19 infection under section 564(b)(1) of the Act, 21 U.S.C 360bbb-3 (b)(1), unless the authorization is terminated or revoked sooner. Fact Sheets for this EUA assay are available upon request. Estrella Henson MD LAB - MICROBIOLOGY O RDERABLES [facility] MICROBIOLOGY [address] [place] [address], [facility] [phone] * US RETROPERITONEAL COMPLETE (05/07/2020 3:41 PM CDT) Only the most recent of4 resultswithin the time period is included. Anatomical Region Laterality Modality Abdomen Ultrasound 05/07/2020 4:23 PM CDT Impressions 05/07/2020 4:24 PM CDT Normal exam *Reading Radiologist: Stan Cardona on 05/07/2020 at 4:24 PM Narrative 05/07/2020 4:24 PM CDT Ultrasound bilateral kidneys and bladder INDICATION: Bilateral flank pain COMPARISON: February 27, 2020 FINDINGS: Ultrasound shows the right kidney to measure 9.47 x 3.95 x 4.48 cm and left kidney to measure 10.13 x 3.98 x 3.39 cm. There is no hydronephrosis. Urinary bladder is partially distended. Bilateral ureteral jets are demonstrated. Procedure Note Stan Cardona MD - 05/07/2020 Ultrasound bilateral kidneys and bladder INDICATION: Bilateral flank pain COMPARISON: February 27, 2020 FINDINGS: Ultrasound shows the right kidney to measure 9.47 x 3.95 x 4.48 cm and left kidney to measure 10.13 x 3.98 x 3.39 cm. There is no hydronephrosis. Urinary bladder is partially distended. Bilateral ureteral jets are demonstrated. IMPRESSION Normal exam *Reading Radiologist: Stan Cardona on 05/07/2020 at 4:24 PM Codey Lake MD US ORDERABLE S * CULTURE URINE (05/03/2020 11:25 AM CDT) Only the most recent of5 resultswithin the time period is included. Urine Culture Routine Final report [facility] INSURANCE BILL Result 1 [facility] INSURANCE BILL Comment: Culture shows less than 10,000 colony forming units of bacteria per milliliter of urine. This colony count is not generally considered to be clinically significant. Urine URINE SPECIMEN OBTAINED BY CLEAN CATCH PROCEDURE / Unknown 05/03/2020 11:25 AM CDT 05/03/2020 Narrative Resulting Agency Comment [facility] [address] [facility] [phone] Codey Lake MD LAB - MICROB IOLOGY ORDERABLES [facility] INSURANCE BILL [address] [place] [address] * STREP A SCREEN - POINT OF CARE (AMB) STL (11/11/2019) Strep A Rapid POCT Negative Negative Strep A Internal Control Present Lot # [id number] Expiration Date 02/18/21 Throat ENTIRE THROAT (SURFACE REGION OF NECK) / Unknown 11/11/2019 Nicki Duran VICE PRESIDENT [employer] MACHINE OPERATOR LAB - POINT OF CARE ORDERABLES * INFLUENZA A+B - POINT OF CARE (AMB) (11/11/2019) Influenza A Antigen Rapid Negative Negative Influenza B Antigen Rapid Negative Negative Influenza Internal Control present NEGATIVE - POSITIVE Influenza Lot Number [id number] Influenza Expiration Date 08/12/21 Other NASOPHARYNGEAL SWAB / Unknown 11/11/2019 Nicki Duran APRN-SEAM RUBBING MACHINE OPERATOR LAB - POINT OF CARE ORDERABLES * FL RETROGRADE PYELOGRAM W/WO KUB (05/24/2019 4:50 PM CDT) Only the most recent of2 resultswithin the time period is included. Anatomical Region Laterality Modality Abdomen Radiographic Sasha ging 05/24/2019 4:55 PM CDT Narrative 05/24/2019 4:56 PM CDT Retrograde pyelogram HISTORY: Nephrolithiasis FINDINGS: 7 submitted intraoperative images demonstrate opacification of a nondilated left renal collecting system with subsequent stone removal and left ureteral stent placement. Fluoroscopy time is 0.6 minutes. Reading Radiologist: Evelyn Beck MD on 05/24/2019 at 4:56 PM Procedure Note Evelyn Beck MD - 05/24/2019 Retrograde pyelogram HISTORY: Nephrolithiasis FINDINGS: 7 submitted intraoperative images demonstrate opacification of a nondilated left renal collecting system with subsequent stone removal and left ureteral stent placement. Fluoroscopy time is 0.6 minutes. Reading Radiologist: Evelyn Beck MD on 05/24/2019 at 4:56 PM Codey Lake MD FLUOROSCOPY ORDERABLES * STONE ANALYSIS QUANT (05/24/2019 4:35 PM CDT) Only the most recent of3 resultswithin the time period is included. Color Dumont 06/02/2019 9:10 AM CDT [facility] ([facility]) Size 5x3x3 mm 06/02/2019 9:10 AM CDT [facility] ([facility]) Weight 28.0 mg 06/02/2019 9:10 AM CDT [facility] ([facility]) Composition Comment 06/02/2019 9:10 AM CDT [facility] ([facility]) Comment:Percentage (Represen ts the % composition) Calcium Oxalate Dihydrate 35 % 06/02/2019 9:10 AM CDT [facility] ([facility]) Calcium Oxalate Monohydrate 20 % 06/02/2019 9:10 AM CDT [facility] ([facility]) Calcium phosphate 45 % 019 9:10 AM CDT [facility] ([facility]) Nidus No Nidus visualized 06/02/2019 9:10 AM CDT [facility] ([facility]) Please Note Comment 06/02/2019 9:10 AM CDT [facility] ([facility]) Comment: Calculi report without photograph will follow via computer, mail, or general claims agent delivery. Comment Comment 06/02/2019 9:10 AM CDT [facility] ([facility]) Comment: Physician questions regarding Calculi Analysis contact [employer] at: [phone]. Disclaimer Comment 06/02/2019 9:10 AM CDT [facility] ([facility]) Comment: This test was developed and its performance characteristics determined by [employer]. It has not been cleared or approved by the Food and Drug Administration. Pathology/Cytolo gy KIDNEY STONE / Unknown Collection / Unknown 05/24/2019 4:35 PM CDT 05/26/2019 10:15 AM CDT Narrative [facility] ([facility]) - 06/02/2019 9:10 AM CDT Performed at: [address] [phone] Inclinometer Tester: Tawny Celis MD, Phone: [phone] Codey Lake MD LAB - URINE CHEMISTRY [facility]ABLES [facility] [address] [place] [address] * GROSS EXAM PATHOLOGY (STL) (05/24/2019 4:35 PM CDT) Case Report Surgical Pathology Report Case: [id number] Authorizing Provider: Codey Lake, Collected: 05/24/2019 04:35 PM MD Ordering Location: [facility] Received: 05/25/2019 08:02 AM Pathologist: Sarah Ross MD Specimen: Calculus 05/26/2019 8:46 AM CDT [facility] Final Diagnosis Calculus, left kidney, removal: - Consistent with removed calculus (gross examination only). SD 05/26/2019 8:46 AM CDT [facility] Gross Description Received fresh in a container labeled Medrano, Jacqueline, and kidney stone left are two irregular, yellow-brown calculi ranging from 0.1 up to 0.3 cm. The specimen is submitted entirely for chemical analysis. JS/ns 05/26/2019 8:46 AM CDT [facility] Embedded Images 05/26/2019 8:46 AM CDT [facility] Pathology/Cytolo gy CALCULUS SPECIMEN / Unknown 05/24/2019 4:35 PM CDT 05/25/2019 8:02 AM CDT Codey Lake MD LAB - PATHOL OGY/CYTOLOGY ORDERABLES [facility] [address] [address] * CT ABDOMEN PELVIS WO CONTRAST (05/11/2019) Only the most recent of2 resultswithin the time period is included. Anatomical Region Laterality Modality Abdomen, Pelvis Other Codey Lake MD CT ORDERABLE S * IMAGING/RADIOLOGY/XRAY RESULTS ORDER (04/09/2019) Only the most recent of4 resultswithin the time period is included. Anatomical Region Laterality Modality Other Scanned Document IMAGING * MRI LUMBAR SPINE W WO CONTRAST (05/13/2017 6:58 PM CDT) Anatomical Region Laterality Modality Spine Magnetic Resonan ce 05/13/2017 7:09 PM CDT Impressions 05/13/2017 7:13 PM CDT MRI lumbar spine with and without contrast-negative. Narrative 05/13/2017 7:13 PM CDT MRI Lumbar Spine With And Without Contrast INDICATION: Back and flank pain. History of renal calculus. TECHNIQUE: Standard MRI sequences of the lumbar spine with and without contrast. 11 mL Dotarem was administered. Comparison made to CT scan images July 16, 2016 abdomen pelvis. FINDINGS: Spinal cord terminates at the L2 level. No distal cord signal abnormality. There is no diffuse marrow replacing process. No focal marrow edema. Small amount of fluid in the L5-S1 facet joints felt reactive. No abnormal dural or distal cord enhancement. There is a nonenhancing left mid renal mass most consistent with a 15 mm small cyst. No retroperitoneal adenopathy. L1-2 through L3-4: No central or foraminal stenosis. The patient has a congenitally large bony spinal canal caliber. L4-5: No nerve root compromise. No central or foraminal stenosis. L5-S1: Again, a congenitally large canal. No nerve root compression or canal/foraminal compromise. Procedure Note Amol Stewart MD - 05/13/2017 MRI Lumbar Spine With And Without Contrast INDICATION: Back and flank pain. History of renal calculus. TECHNIQUE: Standard MRI sequences of the lumbar spine with and without contrast. 11 mL Dotarem was administered. Comparison made to CT scan images July 16, 2016 abdomen pelvis. FINDINGS: Spinal cord terminates at the L2 level. No distal cord signal abnormality. There is no diffuse marrow replacing process. No focal marrow edema. Small amount of fluid in the L5-S1 facet joints felt reactive. No abnormal dural or distal cord enhancement. There is a nonenhancing left mid renal mass most consistent with a 15 mm small cyst. No retroperitoneal adenopathy. L1-2 through L3-4: No central or foraminal stenosis. The patient has a congenitally large bony spinal canal caliber. L4-5: No nerve root compromise. No central or foraminal stenosis. L5-S1: Again, a congenitally large canal. No nerve root compression or canal/foraminal compromise. IMPRESSION MRI lumbar spine with and without contrast-negative. Codey Lake MD MR ORDERABLE S * URINALYSIS - POINT OF CARE (05/05/2017 2:22 PM CDT) Only the most recent of3 resultswithin the time period is included. Clarity UA POCT n/a Color UA POCT n/a Leukocyte UA trace Negative Nitrite UA POCT positive Negative Urobilinogen UA 1.0 0.1 - 1.0 Protein UA POCT negative Negative pH UA 7.0 5.0 - 8.0 pH units Blood UA negative Negative Specific Leonard UA POCT 1.015 1.002 - 1.030 Ketone UA negative Negative Bilirubin UA POCT negative Negative Glucose UA 100 mg/dL Negative Urine URINE / Unknown 05/05/2017 2 :22 PM CDT Codey Lake MD LAB - POINT OF CARE ORDERABLES * XR ABDOMEN 1 VW (05/05/2017 2:14 PM CDT) Only the most recent of6 resultswithin the time period is included. Anatomical Region Laterality Modality Abdomen Radiographic Sasha ging 05/05/2017 2:24 PM CDT Impressions 05/05/2017 2:33 PM CDT NO BOWEL OBSTRUCTION. Edited by Betty Millan on 05/05/2017 2:26 PM Narrative 05/05/2017 2:33 PM CDT ABDOMEN KUB INDICATION: Kidney stones and abdominal pain FINDINGS: Frontal view of the abdomen, compared to September 16, 2016, shows no evidence of bowel obstruction or free intraperitoneal air. No definite renal calculi are seen. Procedure Note Stan Cardona MD - 05/05/2017 ABDOMEN KUB INDICATION: Kidney stones and abdominal pain FINDINGS: Frontal view of the abdomen, compared to September 16, 2016, shows no evidence of bowel obstruction or free intraperitoneal air. No definite renal calculi are seen. IMPRESSION NO BOWEL OBSTRUCTION. Edited by Betty Millan on 05/05/2017 2:26 PM Codey Lake MD DIAGNOSTIC I MAGING ORDERABLES * LAB RESULTS ORDER (09/03/2016) Only the most recent of2 resultswithin the time period is included. Scanned Document LAB - THERAPEUTIC DR TAMAR MONITORING ORDERABLES * HCG URINE QUALITATIVE - POINT OF CARE (IP) (08/19/2016 7:30 AM OUTSOLE TACKER) Only the most recent of3 resultswithin the time period is included. HCG Qual Urine Negative Negative [facility] Verified Yes Yes [facility] POC T TESTING Urine URINE / Unknown 08/19/2016 7 :30 AM OUTSOLE TACKER Codey Lake MD LAB - POINT OF CARE ORDERABLES [facility] POCT TESTING [address] [place] [address], [facility] * URINALYSIS MICROSCOPIC ONLY REFLEXED (PO REF LAB) (07/07/2016 1:23 PM CDT) WBC UA 0-5 0 - 5 /hpf [facility] ACCOUNT BILL RBC UA 0-2 0 - 2 /hpf [facility] ACCOUNT BILL Epithelial Cells (non renal) 0-10 0 - 10 /hpf [facility] ACCOUNT BILL Epithelial Cells (renal) NOT NEEDED [facility] ACCOUNT BILL Comment:Ancillary determined the test is not needed Casts ua NOT NEEDED [facility] ACCOUNT BILL Comment:Ancillary determined the test is not needed Casts UA NOT NEEDED [facility] ACCOUNT BILL Comment:Ancillary determined the test is not needed Crystals UA NOT NEEDED [facility] ACCOUNT BILL Comment:Ancillary determined the test is not needed Crystals UA NOT NEEDED [facility] ACCOUNT BILL Comment:Ancillary determined the test is not needed Mucus UA Present Not Estab. [facility] ACCOUNT BILL Bacteria UA None seen None seen/Few [facility] ACCOUNT BILL Yeast UA NOT NEEDED [facility] ACCOUNT BILL Comment:Ancillary determined the test is not needed Trichomonas UA NOT NEEDED [facility] ACCOUNT BILL Comment:Ancillary determined the test is not needed Comment Urine NOT NEEDED [facility] ACCOUNT BILL Comment:Ancillary determined the test is not needed 07/07/2016 1:23 PM CDT 07/07/2016 11:16 PM CDT Narrative Resulting Agency Comment [facility] [address] [facility] [phone] Bj Lynch MD LAB - URINALYSIS ORD ERABLES [facility] ACCOUNT BILL [address] [place] [address] * URINALYSIS ROUTINE W/REFLEX TO CULTURE (07/07/2016 1:23 PM CDT) Specific Leonard UA 1.017 1.005 - 1.030 [facility] ACCOUNT BILL pH UA 7.0 5.0 - 7.5 [facility] ACCOUNT BILL Color UA Yellow Yellow [facility] ACCOUNT BILL Appearance Clear Clear [facility] ACCOUNT BILL Leukocyte UA Negative Negative [facility] ACCOUNT BILL Protein UA Negative Negative/Tra ce [facility] ACCOUNT BILL Glucose UA Negative Negative [facility] ACCOUNT BILL Ketone UA Negative Negative [facility] ACCOUNT BILL Occult Blood Urine Negative Negative [facility] ACCOUNT BILL Bilirubin UA Negative Negative [facility] ACCOUNT BILL Urobilinogen 0.2 0.2 - 1.0 mg/dL [facility] ACCOUNT BILL Nitrite UA Negative Negative [facility] ACCOUNT BILL Microscopic Examination Urine [facility] ACCOUNT BILL Comment:Microscopic follows if indicated. Microscopic Examination Urine See below: [facility] ACCOUNT BILL Comment:Microscopic was russell cated and was performed. Urinalysis Reflex [facility] ACCOUNT BILL Comment:This specimen will n ot reflex to a Urine Culture. Urine URINE SPECIMEN OBTAINED BY CLEAN CATCH PROCEDURE / Unknown 07/07/2016 1:23 PM CDT 07/07/2016 11:16 PM CDT Narrative Resulting Agency Comment [facility] [address] [facility] [phone] Bj Lynch MD LAB - URINALYSIS ORD ERABLES [facility] ACCOUNT BILL [address] [place] [address] * URIC ACID BLOOD (07/07/2016 1:21 PM CDT) Uric Acid 3.6 3.0 - 8.5 mg/dL [facility] ACCOUNT BILL Blood BLOOD SPECIMEN / Unknown 07/07/2016 1:21 PM CDT 07/07/2016 7:07 PM CDT Narrative Resulting Agency Comment [facility] [address] [facility] [phone] Bj Lynch MD LAB - CHEMISTRY ORDE RABLES Performing Organization Address City/[facility]/ZIP Co de Phone Number [facility] ACCOUNT BILL [address] [place] [address] * COMPREHENSIVE METABOLIC PANEL (07/07/2016 1:21 PM CDT) Glucose 83 74 - 106 mg/dL [facility] ACCOUNT BILL BUN 9 7 - 21 mg/dL [facility] ACCOUNT BILL Creatinine 0.97 0.50 - 1.30 mg/dL [facility] ACCOUNT BILL eGFR by MDRD >60 >60 mL/min/1.7 3m2 [facility] ACCOUNT BILL eGFR by MDRD >60 >60 mL/min/1.7 3m2 [facility] ACCOUNT BILL Sodium 138 136 - 145 mmol/L [facility] ACCOUNT BILL Potassium 3.7 3.5 - 5.1 mmol/L [facility] ACCOUNT BILL Chloride 103 98 - 107 mmol/L [facility] ACCOUNT BILL CO2 26 22 - 31 mmol/L [facility] ACCOUNT BILL Calcium 8.8 8.5 - 10.1 mg/dL [facility] ACCOUNT BILL Protein Total 8.0 6.4 - 8.2 gm/dL [facility] ACCOUNT BILL Albumin 4.3 3.4 - 5.0 gm/dL [facility] ACCOUNT BILL Bilirubin Total 0.4 0.2 - 1.0 mg/dL [facility] ACCOUNT BILL Alkaline Phosphatase 56 38 - 126 U/L [facility] ACCOUNT BILL AST 16 5 - 40 U/L [facility] ACCOUNT BILL ALT 18 13 - 61 U/L [facility] ACCOUNT BILL Blood BLOOD SPECIMEN / Unknown 07/07/2016 1:21 PM CDT 07/07/2016 7:07 PM CDT Narrative Resulting Agency Comment [facility] [address] [facility] [phone] Bj Lynch MD LAB - CHEMISTRY BEN CARLIN [facility] ACCOUNT BILL [address] [place] [address] Care Teams Clinical Laboratory Aides Teacher Relationship Specialty Start Date End Date Codey Oswald MD [address] [place] [phone] PCP - General 09/06/18 MastromichalisCodey MD [address] [place] [phone] Urology 07/22/16
--- OUTSIDE RECORDS SUMMARY | 2024-11-16 20:06 | XMS_ITS ---
Author Organization [employer] Address [address] [facility] [address] [place] [address] Care Team Providers Care Pad Machine Offbearer Name Role Phone Unavailable Primary Care Physician Unavailab le Medications Name Start Date Expiration Date SIG Comments Mirena 21 mcg/24 hr (up to 8 years) 52 mg intrauterine device 04/04/2024 04/05/2024 place 1 device by intrauterine route once Payers Insurance Name Company Name Plan Name Plan Number Policy Num nilesh Policy Group Number Start Date Cigna Cigna [id number] N/A History of Encounters Visit Date Visit Type Provider 04/04/2024 My-IUD Tele-Med Consult Dr. Jose Guadalupe Castillo MD
--- OUTSIDE RECORDS SUMMARY | 2024-11-16 20:06 | XMS_ITS | Encounter Summary ---
Author Organization [facility] Address [address] [place] [address] Care Team Providers Care Open Hearth Furnace Laborer Name Role Phone Codey Lake MD Unavailable [phone]- [phone] Codey Oswald MD Primary Care Provider [phone]- [phone] Reason for Visit * Reason Onset Date Comments MEDICATION REFILL 06/01/2019 Encounter Details Date Type Department Care Team (Late st Contact Info) Description 06/01/2019 Refill [facility] [place] Op [address] [address] Codey Lake MD [address] [facility] [address] [address] [phone] MEDICATION REFILL Social History Tobacco Use Types Packs/Day Years Used Date Smoking Tobacco: Never Smokeless Tobacco: Never Alcohol Use Standard Drinks/Week Comments No 0 (1 standard drink = 0.6 oz pur e alcohol) Sex and Gender Information Value Date Recorded [...] No 08/19/2016 documented as of this encounter Plan of Treatment Not on file documented as of this encounter Visit Diagnoses Not on filedocumented in this encounter Additional Health Concerns Infection Onset Date Last Indicated Resolved Time COVID-19 Under Investigation 11/12/2020 11/12/2020 11/12/2020 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
--- OUTSIDE RECORDS SUMMARY | 2024-11-16 20:06 | XMS_ITS | Continuity of Care Document ---
Author Organization [facility] Address [address] [place] [address] [address] [place] [address] Phone Care Team Providers Care Safety Officer Name Role Phone Tino PTBerenice Unavailable Unavailable Procedures Procedure Date Progress Note Therapeutic Exercise Therapeutic Activities Neuromuscular Re-Ed Manual Therapy Therapeutic Exercise Therapeutic Activities Neuromuscular Re-Ed Manual Therapy Therapeutic Exercise Therapeutic Activities Neuromuscular Re-Ed Manual Therapy Therapeutic Exercise Neuromuscular Re-Ed Manual Therapy PT Evaluation Low Complexity Therapeutic Exercise Therapeutic Activities Neuromuscular Re-Ed Manual Therapy PT RE-EVALUATION THERAPEUTIC EXERCISES NEUROMUSCULAR RE-ED MANUAL THERAPY THERAPEUTIC EXERCISES NEUROMUSCULAR RE-ED MANUAL THERAPY THERAPEUTIC EXERCISES NEUROMUSCULAR RE-ED MANUAL THERAPY THERAPEUTIC EXERCISES NEUROMUSCULAR RE-ED MANUAL THERAPY PT EVALUATION THERAPEUTIC EXERCISES NEUROMUSCULAR RE-ED MANUAL THERAPY FUNC ACTIVITY Advance Directives Directive Yes / No Effective Date File Name No Information Encounters Encounter Description Practice Location Reason(s) For Visit Diagnoses Date Provider Providers Copied on Encounter [facility] [address], [place], [place], [id number], tel:[phone] [facility] Urology [facility] Muscle weakness (generalized)Other muscle spasmPelvic and perineal painOther specified disorders of muscleUrgency of urinationFrequency of micturition 8 Tino Alexandraisti. [address] [facility], [address], [place], [facility], [place]. tel:[phone] Referring Provider: De Nevarez [address], [place], [address]. tel:[phone] [facility] [address] [address], [place], [place], [id number], tel:[phone] [facility] Urology [facility] Other muscle spasmMuscle weakness (generalized)Pelvic and perineal painOther specified disorders of muscleUrgency of urinationFrequency of micturition 8 Tino Berenice. [address] [facility], [address], [place], [facility], [place]. tel:[phone] Referring Provider: De Nevarez [address] [place], [place], [address]. tel:[phone] [facility] [address], [id number], [place] tel:[phone] [facility] Muscle weakness (generalized)Other muscle spasmPelvic and perineal painOther specified disorders of muscleUrgency of urinationFrequency of micturition 8 Tino Berenice. [address] [facility], [address], [place], [place], [facility], [place]. tel:[phone] Referring Provider: De Nevarez [address] [place], [place], [address]. tel:[phone] [facility] [address] [facility] [address], [place], [id number], tel:[phone] [facility] Muscle weakness (generalized)Other muscle spasmPelvic and perineal painOther specified disorders of muscleUrgency of urinationFrequency of micturition Apr-1 0-201 [address]ren[address] [place] [address], [address] [place] [address], [facility], . tel: [phone] Referring Provider: De Nevarez [address], [place], [address]. tel:[phone] [facility] [address] [facility] [address], [place], [id number], tel:[phone] [facility] Muscle weakness (generalized)Other muscle spasmPelvic and perineal painOther specified disorders of muscleUrgency of urinationFrequency of micturition Apr-0 4-201 [address] Tino [address]renice[address] [place] [address], [address], [facility], [place]. tel: [phone] Referring Provider: De Nevarez [address] [facility], [place], [address]. tel:[phone] [facility] [address] [place] [address], [id number], tel:[phone] [facility] Information Dec- 0-201 4 Tino Berenice. [address] [place] [address], [address], [place], [facility], [place]. tel:[phone] Referring Provider: De Nevarez [address] [facility], [place], [address]. tel:[phone] [facility] [address] [facility] [address], [place], [id number], tel:[phone] [facility] No Information Nov0 5-201 4 Tino Berenice. [address] [place] [address], [address] [address], [place]. tel:[phone] Referring Provider: De Nevarez [address] [place], [place], [address]. tel:[phone], [id number], tel:[phone] [facility] No Information 4 Tino Ng. [address] [facility], [place] [address], . tel:[phone] Referring Provider: De Nevarez [address] [place], [place] [address]. tel:[phone], [id number], tel:[phone] [facility] No Information Tino Ng. [address] [facility], [place] [address], . tel:[phone] Referring Provider: De Nevarez [address] [place], [place], [address]. tel:[phone], [id number], tel:[phone] [facility] Muscle weakness (generalized) Tino Ng. [address] [facility], [place] [address], . tel:[phone] Referring Provider: De Nevarez [address] [place], [place], [address]. tel:[phone] Family History Family Member Type Diagnosis Age At Onset No Information Payers Payer name Insurance type Covered democrat ID Christena freddiecarlos(s) [employer] [facility] [id number] Social History Type Description Quantity Date Captured Comments Sex Female Smoking Status No Information Chief Complaint And Reason For Visit No Information Reason For Referral Reason For Referral No Information History Of Present Illness Encounter Date Complaint History Of Prese nt Illness No Information Functional Status Date Functional Assessmen t No Information Instructions Date Instruction Additional Infor mation No Information Assessments Type Assessment Date No Information Patient Care Teams Name Effective Dates (start - stop) Status Members No Information
--- OUTSIDE RECORDS SUMMARY | 2024-11-16 20:06 | XMS_ITS | Encounter Summary ---
Author Organization [facility] Address [address] [place] [address] Care Team Providers Care Winter Sports Manager Name Role Phone Codey Lake MD Unavailable +1- [phone] Codey Oswald MD Primary Care Provider +1- [phone] Reason for Visit * Reason Onset Date Comments MEDICATION REFILL 05/20/2019 Encounter Details Date Type Department Care Team (Late st Contact Info) Description 05/20/2019 Refill [facility] MYCHART GENERIIC [address] [place] [address] Codey Oswald MD [facility] [place] [address] MEDICATION REFILL Social History Tobacco Use Types [...] Under Investigation 11/12/2020 11/12/2020 11/12/2020 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
--- OUTSIDE RECORDS SUMMARY | 2024-11-16 20:06 | XMS_ITS | Clinical Summary ---
Author Organization [facility] Address [address] [place] [address] Care Team Providers Care Supervisor Inspection Name Role Phone Codey Oswald MD Primary Care Provider +1 [phone] Allergies Active Allergy Reactions Criticality Noted Date [...] to remove lenses 2-3 times per day [place] (#134650/ [id number]) OD: dot 280, 300um uniform clearance, good [...] weeks after receiving new OD lens Ref #[id number] Assessment & Plan (06/19/2023 9:25 AM CDT): H/o poor ocular surface integrity, highly symptomatic / affecting ADL [place] (#079801 / 106348) OD: dot 280, 300um uniform clearance, good [...] surface integrity, highly symptomatic / affecting ADL [place] (#773079 / 399824) OD: dot 280, 300um uniform clearance, good [...] OD (-150um) and higher OS (+150um) Ref# [id number] / [id number] RTC for CL dispense with I/R, sooner prn. RTC with cornea as directed. Blood in urine 06/06/2010 Calculus of kidney 06/06/2010 Surgical History Surgery Date Site/Laterality Comments WRIST SURGERY Wrist Surgery - 08/2007 (Added by TW Conv) Medical History Medical History Date Comments Personal history of other me ntal and behavioral disorders History of depression - (Add ed by TW Conv) Anxiety disorder Anxiety - (Adde d by TW Conv) Family History Medical History Relation Name Comments Diabetes Father Family history of diabetes mellitus - (Added by TW Conv) Thyroid disease Father Family histo ry of thyroid disease - (Added by TW Conv) Thyroid disease Mother Family histo ry of thyroid disease - (Added by TW Conv) Diabetes Other Diabetes [facility] - (Added by TW Conv) Relation Name Status Comments Father Mother Other Social History Tobacco Use Types Packs/Day Years Used Date Smoking Tobacco: Never Smokeless Tobacco: Never Tobacco Cessation:Counseling Given: Not Answered Comments Unknown Sex and Gender Information Value Date Recorded Sex Assigned at Not on file 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 Gender Identity Female 01/23/2023 11:52 AM CDT Sexual Orientation Not on file Obstetrics History Last Filed Vital Signs Vital Sign Reading [...] 01/23/2023 12:13 PM CDT Plan of Treatment Health Maintenance Due Date Last Done Comments Cervical Cancer Screening 1987 Depression Screening 1987 Hepatitis C Screening 1987 Varicella Vaccines (1 of 2 - 13+ 2-dose series) 2000 Hepatitis B Screening 2005 Regular Well Visit/Exam 18-64 2005 Covid-19 Vaccine (3 - 2023-2 5 season) 2024 03/29/2021, 03/08/2021 Influenza Vaccine (#1) 2024 DTaP/Tdap/Td Vaccine (3 - Td or Tdap) 04/14/2029 04/14/2019, 11/24/2010 HPV Vaccines Aged Out No longer eligi ble based on patient's age to complete this topic Pneumococcal vaccine <65 Aged Out No longer eligible based on patient's age to complete this topic Insurance [facility] Care Teams Supervisor Inspection Relationship Specialty Start Date End Date Codey Oswald MD [address] [place] [address] PCP - General Family Medicine 04/21/23
--- OUTSIDE RECORDS SUMMARY | 2024-11-16 20:06 | XMS_ITS | Referral Summary ---
Author Organization [facility] Address [address] [facility] [place] [address] Care Team Providers Care Lead Mobile Developer Name Role Phone Codey Lake MD Unavailable +1- [phone] Codey Oswald MD Primary Care Provider +1- [phone] Source Comments [facility],non-owned Affiliates and Associated Physician Practices is amultiple site organization consisting of ambulatory clinics and hospital sitesin [place] and [place]. This disclosure is being madepursuant to the Care Everywhere program and may not contain all information available regarding this patient. Last updated 18.[facility] Allergies Active Allergy Reactions Criticality Noted Date [...] Administration Dates Next Due TDAP (7yrs+) 11/24/2010 Social History Tobacco Use Types Packs/Day Years Used Date Smoking Tobacco: Never Smokeless Tobacco: Never Tobacco Cessation:Counseling Given: No Alcohol Use Standard Drinks/Week Comments No 0 (1 standard drink = 0.6 oz pur e alcohol) AUDIT-C Answer Date Recorded Q1: How often do you have a drink containing alc ohol? Never 11/20/2020 Average Number of Drinks Not on file Frequency of Binge Drinking Not on file [...] Mass Index 32.37 01/10/2021 3:33 PM CDT Functional Status Functional Status Response Date of [...] person have difficulty concentrating/remembering/making decisions? No 08/19/2016 Plan of Treatment Not on file Medical Devices Implanted Type Area Technology Program Manager Device Identifier Shelf Expiration Date Model / Serial / Lot Stent Uret 4.8fr 22-30cm Pgtl Crv Tpr Implanted:Qty: 1 on 08/08/2016 by Codey Lake MD at [facility] Left: Ureter [place] [employer] 02/06/2019 [id number] / / [id number] Set Stent Blk 22cm 6fr .038in 2 Pgtl Crv Implanted:Qty: 1 on 05/24/2019 by Codey Lake MD at [facility] Left: Ureter [employer] 03/30/2022 [id number] / / [id number] Mirena Intrauterine Device Implanted:Qty: 1 on 11/14/2020 by Estrella Henson MD at [facility] N/A: Uterus 02/18/2023 [id number] / [id number] / [id number] Administered Medications Care Teams Lead Mobile Developer Relationship Specialty Start Date End Date Codey Oswald MD [address] [place] [address] PCP - General 09/06/18 MastCodey xiong MD [address] [place] [address] Urology 07/22/16
--- OUTSIDE RECORDS SUMMARY | 2024-11-16 20:06 | XMS_ITS | Clinical Summary ---
Author Organization [facility] [address] Address [address] [place] [address] Care Team Providers Care Identification Printing Machine Setter Name Role Phone Codey Oswald MD Primary Care Provider +1- [phone] Allergies Active Allergy Reactions Criticality Noted Date Comments Latex Rash 12/05/2019 Medications norethindrone ac-eth estradiol (MICROGESTIN , ORAL) Take by mouth. Active FLUoxetine (PROzac) 40 mg capsule Take 80 mg by mouth daily. Active cetirizine (ZyrTEC) 10 mg tablet Take 10 mg by mouth daily. Active Social History Tobacco Use Types Packs/Day Years Used Date Smoking Tobacco: Never Comments No Sex and Gender Information Value Date Recorded Sex Assigned at Not on file Legal Sex Female 11:25 PM CDT Gender Identity Not on file Sexual Orientation Not on file Last Filed Vital Signs Vital Sign Reading Time Taken Comments Blood Pressure 120/74 12/05/2019 5:29 PM CDT Pulse 89 12/05/2019 5:29 PM CDT Temperature 37.2 C (98.9 F) 12/05/2019 5:29 PM CDT Respiratory Rate 14 12/05/2019 5:29 PM CDT Oxygen Saturation 99% 12/05/2019 5:29 PM CDT Inhaled Oxygen Concentration - - Weight 72.6 kg (160 lb) 12/05/2019 5:29 PM CDT Height 157.5 cm (5' 2 ) 12/05/2019 5:29 PM CDT Body Mass Index 29.26 12/05/2019 5:29 PM CDT Plan of Treatment Health Maintenance Due Date Last Done Comments HEPATITIS B VACCINES (1 of 3 - 19+ 3-dose series) 2006 CERVICAL CANCER SCREENING 2017 DTAP/TDAP/TD VACCINES (2 - T d or Tdap) 11/24/2020 11/24/2010 INFLUENZA VACCINE (#1) 2024 HPV VACCINES Aged Out No longer eligi ble based on patient's age to complete this topic PNEUMOCOCCAL VACCINE 0-64 YEARS Aged Out No longer eligible based on patient's age to complete this topic Insurance [employer] PPO Care Teams Identification Printing Machine Setter Relationship Specialty Start Date End Date Codey Oswald MD PCP - General Family Practice 12/05/19
[2024-11-16 20:40] VITALS: BP 100/87; PULSE 93; RESP 18; TEMP 36.4; O2SAT 99
[2024-11-16 23:50] VITALS: BP 117/79; PULSE 77; RESP 20; O2SAT 98
[2024-11-17 01:58] VITALS: BP 116/68; PULSE 72; RESP 16; O2SAT 100
[2024-11-17 02:03] VITALS: PULSE 68
[2024-11-17 02:06] LABS: Basophils Percent Auto 0.3 % (0.2-1.2); Eosinophils Percent Auto 0.7 % (0-4.4); Hematocrit 40.6 % (37.0-47.0); Hemoglobin 13.6 g/dL (12.0-15.0); Immature Granulocyte Absolute 0.01 K/mm3 (0.00-0.031); Immature Granulocyte Percent A 0.2 % (0-0.5); Lymphocytes Absolute Auto 2.34 K/mm3 (0.9-3.2); Lymphocytes Percent Auto 38.8 % (18.3-44.2); Mean Corpuscular HGB Conc 33.5 g/dl (32-36); Mean Corpuscular Hemoglobin 31.5 pg (26-34); Mean Platelet Volume 9.7 fl (7.4-10.4); Monocytes Absolute Auto 0.4 K/mm3 (0.1-0.6); Monocytes Percent Auto 6.6 % (2.6-8.5); Neutrophils Absolute Auto 3.2 K/mm3 (1.3-6.7); Neutrophils Percent Auto 53.4 % (45.5-73.1); Platelet Count Result 217 k/mm3 (150-375); Red Blood Count 4.32 M/mm3 (4.2-5.4); Red Cell Distribution Width 12.1 % (11.5-14.5)
[2024-11-17 02:16] LABS: Alanine Aminotransferase 21 U/L (6-35); Albumin Level 4.5 g/dL (3.5-5.1); Alkaline Phosphatase 68 U/L (38-126); Anion Gap 9 mmol/L (4-12); Aspartate Amino Transferase 27 U/L (14-36); Bilirubin,Total 0.5 mg/dL (0.2-1.3); Blood Urea Nitrogen 14 mg/dL (7-17); Calcium 9.2 mg/dL (8.4-10.2); Carbon Dioxide 27 mmol/L (22-30); Chloride 102 mmol/L (98-107); Estimated Glomerular Filt Rate > 60; Glucose 92 mg/dL (65-110); Lipase 118 U/L (23-300); Potassium 3.3 mmol/L (3.4-5.0); Sodium 138 mmol/L (137-145)
[2024-11-17 02:26] LABS: Prothrombin Time 13.8 Seconds (11.1-14.7)
[2024-11-17 02:28] LABS: Partial Thromboplastin Time 28.1 Seconds (22.3-36.8); Troponin I < 0.012 ng/mL (0.000-0.034)
[2024-11-17 02:37] LABS: D Dimer < 0.27 ug/mL (<0.48)
--- OUTSIDE RECORDS SUMMARY | 2024-11-17 02:37 | XMS_ITS | Clinical Summary ---
Author Organization [facility] Address [address] [facility] [address] Care Team Providers Care Mortgage Loan Officer Originator Name Role Phone Codey Lake MD Unavailable +1- [phone] Codey Oswald MD Primary Care Provider +1- [phone] Source Comments [facility],non-owned Affiliates and Associated Physician Practices is amultiple site organization consisting of ambulatory clinics and hospital sitesin [place], [place], [place] and [place]. This disclosure is being madepursuant to the Care Everywhere program and may not contain all information available regarding this patient. Last updated 18.[facility] Allergies Active Allergy Reactions Criticality Noted Date [...] topic MENINGOCOCCAL VACCINE Aged Out No uma daquan eligible based on patient's age to complete this topic PNEUMOCOCCAL VACCINE Aged Out No long er eligible based on patient's age to complete this topic Medical Devices Implanted Type Area Substation Design Draftsperson Device Identifier Shelf Expiration Date Model / Serial / Lot Stent Uret 4.8fr 22-30cm Pgtl Crv Tpr Implanted:Qty: 1 on 08/08/2016 by Codey Lake MD at [facility] Left: Ureter [place] [employer] 02/06/2019 [id number] / / [id number] Set Stent Blk 22cm 6fr .038in 2 Pgtl Crv Implanted:Qty: 1 on 05/24/2019 by Codey Lake MD at [facility] Left: Ureter [employer] 03/30/2022 [id number] / / [id number] Mirena Intrauterine Device Implanted:Qty: 1 on 11/14/2020 by Estrella Henson MD at [facility] N/A: Uterus 02/18/2023 [id number] / [id number] / [id number] Care Teams Mortgage Loan Officer Originator Relationship Specialty Start Date End Date Codey Oswald MD [address] [place] [address] PCP - General 09/06/18 MastromichalisCodey MD [address] [place] [address] Urology 07/22/16
--- OUTSIDE RECORDS SUMMARY | 2024-11-17 02:37 | XMS_ITS ---
Author Organization [employer] Address [address] [facility] [address] [place] [address] Care Team Providers Care Stone Lathe Operator Name Role Phone Unavailable Primary Care Physician Unavailab le Medications Name Start Date Expiration Date SIG Comments Mirena 21 mcg/24 hr (up to 8 years) 52 mg intrauterine device 04/04/2024 04/05/2024 place 1 device by intrauterine route once Payers Insurance Name Company Name Plan Name Plan Number Policy Num nilesh Policy Group Number Start Date Cigna Cigna [id number] N/A History of Encounters Visit Date Visit Type Provider 04/04/2024 My-IUD Tele-Med Consult Dr. Jose Guadalupe Castillo MD
--- OUTSIDE RECORDS SUMMARY | 2024-11-17 02:37 | XMS_ITS | Clinical Summary ---
Author Organization [facility] Address [address] [place] [address] Care Team Providers Care Boring Mill Operator Name Role Phone Codey Oswald MD Primary Care Provider +1- [phone] Allergies Active Allergy Reactions Criticality Noted Date [...] this topic Insurance [employer] PPO Care Teams Boring Mill Operator Relationship Specialty Start Date End Date Codey Oswald MD PCP - General Family Practice 12/05/19
--- OUTSIDE RECORDS SUMMARY | 2024-11-17 02:37 | XMS_ITS | Encounter Summary ---
Author Organization [facility] Address [address] [facility] [place] [address] Care Team Providers Care Recruiting Assistant Name Role Phone Codey Lake MD Unavailable +1- [phone] Codey Oswald MD Primary Care Provider +1- [phone] Reason for Visit * Reason Onset Date Comments MEDICATION REFILL 06/01/2019 Encounter Details Date Type Department Care Team (Late st Contact Info) Description 06/01/2019 Refill [facility] [place] [address] [address] Codey Lake MD [address] [facility] [address] [address] [id number] MEDICATION REFILL Social History Tobacco Use Types [...] Under Investigation 11/12/2020 11/12/2020 11/12/2020 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
--- OUTSIDE RECORDS SUMMARY | 2024-11-17 02:37 | XMS_ITS | Clinical Summary ---
Author Organization [facility] Address [address] [place] [address] Care Team Providers Care Teller Name Role Phone Codey Oswald MD Primary Care Provider +1 -[phone] Allergies Active Allergy Reactions Criticality Noted Date [...] to remove lenses 2-3 times per day [place] (#254461/ 858558) OD: dot 280, 300um uniform clearance, good [...] weeks after receiving new OD lens Ref #[id number] Assessment & Plan (06/19/2023 9:25 AM CDT): H/o poor ocular surface integrity, highly symptomatic / affecting ADL [place] (#791243 / 353982) OD: dot 280, 300um uniform clearance, good [...] surface integrity, highly symptomatic / affecting ADL [place] (#562124 / 882190) OD: dot 280, 300um uniform clearance, good [...] OD (-150um) and higher OS (+150um) Ref# [id number] / [id number] RTC for CL dispense with I/R, sooner [...] (Added by TW Conv) Diabetes Other Diabetes [facility] - (Added by TW Conv) Relation Name Status Comments Father Mother Other Social History Tobacco Use Types Packs/Day Years Used Date Smoking Tobacco: Never Smokeless Tobacco: Never Tobacco Cessation:Counseling Given: Not Answered Comments Unknown Sex and Gender Information Value Date Recorded Sex Assigned at Not on file 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
--- OUTSIDE RECORDS SUMMARY | 2024-11-17 02:37 | XMS_ITS | Patient Health Summary ---
Author Organization [facility] Address [address] [address] Care Team Providers Care Net Applications Developer Name Role Phone Codey Lake MD Unavailable [phone]- [phone] Codey Oswald MD Primary Care Provider [phone]- [phone] Note from [facility],non-owned Affiliates and Associated Physician Practices is amultiple site organization consisting of ambulatory clinics and hospital sitesin [place], [place], [place] and [place]. This disclosure is being madepursuant to the Care Everywhere program and may not contain all information available regarding this patient. Last updated 18.[facility] Allergies * Duloxetine(Nausea and/or Vomiting) * [...] NANCI; REUBEN; RADHA-BE; DAYNA; JOLIVETTE) 0.35 MG tablet(Started 01/01/2021) Take 1 [...] PM CDT Medical Devices Implanted Type Area Data Architect Manager Device Identifier Shelf Expiration Date Model / Serial / Lot Stent Uret 4.8fr 22-30cm Pgtl Crv Tpr Implanted:Qty: 1 on 08/08/2016 by Codey Lake MD at [facility] Left: Ureter [employer] 02/06/2019 [id number] / / [id number] Set Stent Blk 22cm 6fr .038in 2 Pgtl Crv Implanted:Qty: 1 on 05/24/2019 by Codey Lake MD at [facility] Left: Ureter [employer] 03/30/2022 [id number] / / [id number] Mirena Intrauterine Device Implanted:Qty: 1 on 11/14/2020 by Estrella Henson MD at [facility] N/A: Uterus 02/18/2023 [id number] / [id number] / [id number] Procedures * URINALYSIS AUTO - POINT OF [...] unknown * ENDOTRACHEAL TUBE NOTE(Performed 11/14/2020) * MD LAP,DIAGNOSTIC ABDOMEN(Performed 11/14/2020) Performed for Diagnosis unknown [...] (STL)(Performed 05/24/2019) Performed for Kidney pain * MD CYSTO/URETERO/PYELOSCOPY W/LITHOTRIPSY(Performed 05/24/2019) Performed for N20.0 * [...] included. Clarity UA POCT na [facility] Color UA POCT na [facility] Leukocyte UA negative Negative [facility] Nitrite UA POCT negative Negative [facility] Urobilinogen UA 0.2 0.1 - 1.0 [facility] Comment:mg/dl Protein UA POCT neagtive Negative [facility] pH UA 7.0 5.0 - 8.[address] [facility] Blood UA negative Negative [facility] Specific Dilley UA POCT 1.015 1.002 - 1.[address] [facility] Ketone UA negative Negative [facility] Bilirubin UA POCT negative Negative [facility] Glucose UA negative Negative [facility] Expiration Date 09/28/2022 [facility] Lot # [id number] [facility] QC Verified Yes Yes [facility] Urine URINE / Unknown 01/10/2021 4 :36 PM CDT Codey Lake MD LAB - POINT OF CARE ORDERABLES [facility] [address] [phone] * CT CERVICAL SPINE WO CONTRAST (12/27/2020 [...] Urine Negative Negative 12/27/2020 4:15 PM T [facility] Urine URINE / Unknown Collection / Unknown 12/27/2020 3:31 PM CDT 12/27/2020 3:37 PM CDT Rani Hager MD LAB - URINALYSIS ORD ERABLES [facility] [address] [place] [address], [facility] [phone] * CBC W AUTO DIFFERENTIAL (12/27/2020 3:30 PM CDT) Only the most recent of3 resultswithin the time period is included. WBC 5.4 3.5 - 10.5 10 3/uL 12/27/2020 3:48 PM [facility] RBC 4.76 3.90 - 5.00 10 6/uL 12/27/2020 3:48 PM [facility] Hemoglobin 14.3 12.0 - 15.5 g/dL 12/27/2020 3:48 PM [facility] Hematocrit 42.9 35.0 - 45.0 % 12/27/2020 3:48 PM [facility] MCV 90.1 81.0 - 97.0 fL 12/27/2020 3:48 PM [facility] MCH 30.0 28.0 - 34.0 pg 12/27/2020 3:48 PM [facility] MCHC 33.3 32.0 - 36.0 g/dL 12/27/2020 3:48 PM [facility] Platelet Count 213 150 - 400 10 3/uL 12/27/2020 3:48 PM [facility] RDW-SD 40.4 36.0 - 50.0 fL 12/27/2020 3:48 PM [facility] RDW-CV 12.2 11.2 - 14.8 % 12/27/2020 3:48 PM [facility] MPV 9.9 9.3 - 12.8 fL 12/27/2020 3:48 PM [facility] nRBC Absolute 0.00 0 10 3/uL 12/27/2020 3:48 PM T [facility] nRBC Auto 0.0 0 /100 WBC 12/27/2020 3:48 PM [facility] Neutrophils % 53.6 35.0 - 70.0 % 12/27/2020 3:48 PM [facility] Lymphocytes % 37.8 19.7 - 55.1 % 12/27/2020 3:48 PM [facility] Monocytes % 7.6 3.0 - 15.0 % 12/27/2020 3:48 PM [facility] Eosinophils % 0.4 0.0 - 6.0 % 12/27/2020 3:48 PM [facility] Basophil % 0.4 0.0 - 1.5 % 12/27/2020 3:48 PM [facility] Neutrophils Absolute 2.9 1.6 - 7.0 10 3/uL 12/27/2020 3:48 PM [facility] Lymphocyte Absolute 2.0 0.8 - 2.9 10 3/uL 12/27/2020 3:48 PM [facility] Monocytes Absolute 0.41 0.14 - 0.66 10 3/uL 12/27/2020 3:48 PM [facility] Eosinophils Absolute 0.02 0.00 - 0.45 10 3/uL 12/27/2020 3:48 PM [facility] Basophils Absolute 0.02 0.00 - 0.06 10 3/uL 12/27/2020 3:48 PM [facility] Immature Granulocytes % 0.2 0.0 - 1.0 % 12/27/2020 3:48 PM [facility] Blood BLOOD SPECIMEN / Unknown Venipuncture / Unknown 12/27/2020 3:30 PM CDT 12/27/2020 3:38 PM CDT Rani Hager MD LAB - HEMATOLOGY ORD ERABLES [facility] [address] [place] [address], [facility] [phone] * BASIC METABOLIC PANEL (CALCIUM TOTAL) (12/27/2020 3:30 PM CDT) BUN 8 7 - 26 mg/dL 12/27/2020 4:04 PM [facility] Creatinine 0.7 0.6 - 1.2 mg/dL 12/27/2020 4:04 PM [facility] Sodium 140 136 - 145 mmol/L 12/27/2020 4:04 PM [facility] Potassium 3.6 3.5 - 4.5 mmol/L 12/27/2020 4:04 PM [facility] Chloride 105 98 - 107 mmol/L 12/27/2020 4:04 PM [facility] CO2 23 22 - 29 mmol/L 12/27/2020 4:04 PM [facility] Glucose 92 70 - 115 mg/dL 12/27/2020 4:04 PM [facility] Calcium 8.8 8.4 - 10.2 mg/dL 12/27/2020 4:04 PM [facility] Anion Gap 16 8 - 18 12/27/2020 4:04 PM [facility] BUN/Creatinine Ratio 11 7 - 23 12/27/2020 4:04 PM [facility] Osmolality Calculated 288 270 - 300 mOsm/kg 12/27/2020 4:04 PM [facility] eGFR >60 >60 mL/min/1.7 3 m2 12/27/2020 4:04 PM [facility] Blood BLOOD SPECIMEN / Unknown Venipuncture / Unknown 12/27/2020 3:30 PM CDT 12/27/2020 3:38 PM CDT Rani Hager MD LAB - CHEMISTRY ORDE RAEGAN [facility] Organization Address City/State/ZIP Co de Phone Number [facility] [address] [place] [address], [facility] [phone] * CARDIAC RHYTHM STRIP ORDER (11/16/2020 6:50 PM DIRECTOR BUSINESS TRAVEL) Only the most recent of5 resultswithin the time period is included. Narrative 11/16/2020 6:50 PM DIRECTOR BUSINESS TRAVEL Ordered by an unspecified provider. Scanned Document CARDIAC SERVICES ORD ERABLES * PATHOLOGY TISSUE EXAM (STL) (11/14/2020 1:11 PM DIRECTOR BUSINESS TRAVEL) Case Report Surgical Pathology Report Case: [id number] Authorizing Provider: Estrella Henson MD Collected: 11/14/2020 01:11 PM Ordering Location: [facility] Received: 11/14/2020 02:29 PM Pathologist: Gisela Magaña MD Specimens: A) - Ligament, LEFT UTEROSACRAL LIGAMENT B) - Ligament, LEFT UTEROSACRAL LIGAMENT 2 C) - Tissue, LEFT POSTERIOR CUL DE SAC LESION D) - Tissue, POSTERIOR CUL DE SAC 11/16/2020 2:01 PM DIRECTOR BUSINESS TRAVEL [facility] Final Diagnosis Peritoneum, left uterosacral ligament, biopsy (A) - No histopathologic abnormality Peritoneum, left uterosacral ligament, biopsy (B) - Adhesions and fibrin Peritoneum, left posterior cul de sac lesion, biopsy (C) - Adhesions and focal benign mesothelial hyperplasia Peritoneum, right posterior cul de sac, biopsy (D) - Adhesions, focal 11/16/2020 2:01 PM DIRECTOR BUSINESS TRAVEL [facility] Clinical History The patient is a 35-year-old woman who underwent laparoscopic excision of endometriosis. 11/16/2020 2:01 PM DIRECTOR BUSINESS TRAVEL [facility] Gross Description The requisition and specimen are identified with the patient's name and date of . Received in formalin, specimen A, left utero-sacral liga+, is a lrtj-ezvfi-nqj fibrous tissue fragment, 0.8 x 0.6 x 0.1 cm. Entirely submitted in cassette A1. Received in formalin, specimen B, left utero-sacral lig+, is a efkz-nepkh-vnt fibrous tissue fragment, 0.7 x 0.4 x 0.1 cm. Entirely submitted in cassette B1. Received in formalin, specimen C, left posterior cul-de+, is a pink-dumont, fibrous membranous tissue fragment, 1.2 x 0.3 x 0.1 cm. Entirely submitted in cassette C1. Received in formalin, specimen D, posterior cul-de-sac right, is a uhca-shombi-ank fibrofatty tissue fragment, 1.1 x 0.9 x 0.2 cm. Entirely submitted in cassette D1. LJ/ns 11/16/2020 2:01 PM [facility] Microscopic Description Microscopic examination substantiates the above diagnosis. 11/16/2020 2:01 PM [facility] Disclaimer All histochemical and/or immunohistochemical results are interpreted with controls that demonstrate appropriate staining reactions before reporting results. Note on use of immunocytochemistry reagents: This test was developed and its performance characteristic determined by [facility], Department of Laboratory Medicine. It has not [...] be interpreted with caution. 11/16/2020 2:01 PM [facility] Embedded Images 11/16/2020 2:01 PM [facility] Pathology/Cytology ENTIRE LIGAMENT / Unknown 11/14/2020 1:11 PM DIRECTOR BUSINESS TRAVEL 11/14/2020 2:29 PM DIRECTOR BUSINESS TRAVEL Comment:Pre-op diagnosis: Diagnosis unknown [R69] Miscellaneous samples (specimen) ENTIRE LIGAMENT / Unknown 11/14/2020 1:13 PM DIRECTOR BUSINESS TRAVEL 11/14/2020 2:29 PM DIRECTOR BUSINESS TRAVEL Comment:Pre-op diagnosis: Diagnosis unknown [R69] Miscellaneous samples (specimen) TISSUE SPECIMEN / Unknown 11/14/2020 1:15 PM DIRECTOR BUSINESS TRAVEL 11/14/2020 2:29 PM DIRECTOR BUSINESS TRAVEL Comment:Pre-op diagnosis: Diagnosis unknown [R69] Miscellaneous samples (specimen) TISSUE SPECIMEN / Unknown 11/14/2020 1:22 PM DIRECTOR BUSINESS TRAVEL 11/14/2020 2:29 PM DIRECTOR BUSINESS TRAVEL Comment:Pre-op diagnosis: Diagnosis unknown [R69] Estrella Henson MD LAB - PATHOLOGY/CYTO LOGY ORDERABLES [facility] [address] [place] [address] * ETT LINE PERFORMABLE (11/14/2020 12:36 PM DIRECTOR BUSINESS TRAVEL) Narrative Richard De Anda MD - 11/14/2020 12:36 PM DIRECTOR BUSINESS TRAVEL Pancho Marina APRN-CRNA 11/14/2020 12:37 PM Endotracheal Tube Placement: Patient Location: OR. Intubation Event Date/Time: 11/14/2020 12:22 PM Procedure: intubation (87554). Procedure Section: Sedation: under general anesthesia. Indications [...] URINE QUAL POCT NOTIFICATION (11/14/2020 9:31 AM DIRECTOR BUSINESS TRAVEL) Only the most recent of2 resultswithin the time period is included. Comment Notification Label Only - See Separate Report 11/14/2020 9:31 AM DIRECTOR BUSINESS TRAVEL [facility] Urine URINE / Unknown 8:12 AM DIRECTOR BUSINESS TRAVEL Richard De Anda MD LAB - URINALYSIS ORD ERABLES [facility] [address] [place] [address] * HCG URINE QUALITATIVE - POCT (IP) INTERFACED (11/14/2020 8:16 AM DIRECTOR BUSINESS TRAVEL) Only the most recent of2 resultswithin the time period is included. HCG Qual Urine Negative Negative 11/14/2020 8:23 AM DIRECTOR BUSINESS TRAVEL [facility] Urine URINE / Unknown 11/14/2020 8 :16 AM DIRECTOR BUSINESS TRAVEL 11/14/2020 8:22 AM DIRECTOR BUSINESS TRAVEL Estrella Henson MD LAB - POINT OF CARE ORDERABLES [facility] [address] [place] [address] * SARS-COV-2 (COVID-19) IN HOUSE (11/12/2020 2:36 PM DIRECTOR BUSINESS TRAVEL) Pathologist [facility] COVID-19 PCR Not detected Not detected 11/12/2020 11:10 PM DIRECTOR BUSINESS TRAVEL [facility] Microbiology SPECIMEN FROM NASOPHARYNGEAL STRUCTURE / Unknown Collection / Unknown 11/12/2020 2:36 PM DIRECTOR BUSINESS TRAVEL 11/12/2020 3:05 PM DIRECTOR BUSINESS TRAVEL Narrative [facility] - 11/12/2020 11:10 PM DIRECTOR BUSINESS TRAVEL This nucleic acid amplification assay performance was validated by [facility]biology [facility]. This test has been authorized [...] Henson MD LAB - MICROBIOLOGY O RDERABLES [facility] [address] [place] [address], [facility] [phone] * US RETROPERITONEAL COMPLETE (05/07/2020 3:41 PM [...] Resulting Agency Comment [facility] performed [facility]: [facility] [address] [phone] Codey Lake MD LAB - MICROB IOLOGY ORDERABLES [facility] BILL [address] [place] [address] * STREP A SCREEN - POINT OF CARE (AMB) STL (11/11/2019) Strep A Rapid POCT Negative Negative Strep A Internal Control Present Lot # [id number] Expiration Date 02/18/21 Throat ENTIRE THROAT (SURFACE REGION OF NECK) / Unknown 11/11/2019 Nicki Duran FLUID DYNAMICIST-STOREROOM CLERK LAB - POINT OF CARE ORDERABLES * INFLUENZA A+B - POINT OF CARE (AMB) (11/11/2019) Influenza A Antigen Rapid Negative Negative Influenza B Antigen Rapid Negative Negative Influenza Internal Control present NEGATIVE - POSITIVE Influenza Lot Number [id number] Influenza Expiration Date 08/12/21 Other NASOPHARYNGEAL SWAB / Unknown 11/11/2019 Nicki Duran APRN-STOREROOM CLERK LAB - POINT OF CARE ORDERABLES * [...] on 05/24/2019 at 4:56 PM Procedure Note Eveyln Beck MD - 05/24/2019 Retrograde pyelogram HISTORY: [...] Color Dumont 06/02/2019 9:10 AM CDT [facility] ([facility]) Size 5x3x3 mm 06/02/2019 9:10 AM CDT [facility] ([facility]) Weight 28.0 mg 06/02/2019 9:10 AM CDT [facility] ([facility]) Composition Comment 06/02/2019 9:10 AM CDT [facility] ([facility]) Comment:Percentage (Represen ts the % composition) Calcium Oxalate Dihydrate 35 % 06/02/2019 9:10 AM CDT [facility] ([facility]) Calcium Oxalate Monohydrate 20 % 06/02/2019 9:10 AM CDT [facility] ([facility]) Calcium phosphate 45 % 019 9:10 AM CDT [facility] ([facility]) Nidus No Nidus visualized 06/02/2019 9:10 AM CDT [facility] ([facility]) Please Note Comment 06/02/2019 9:10 AM CDT [facility] ([facility]) Comment: Calculi report without photograph will follow via computer, mail, or configurator delivery. Comment Comment 06/02/2019 9:10 AM CDT [facility] ([facility]) Comment: Physician questions regarding Calculi Analysis contact [facility] at: [phone]. Disclaimer Comment 06/02/2019 9:10 AM CDT [facility] ([facility]) Comment: This test was developed and its performance characteristics determined by [facility]. It has not been cleared or approved by the Food and Drug Administration. Pathology/Cytolo gy KIDNEY STONE / Unknown Collection / Unknown 05/24/2019 4:35 PM CDT 05/26/2019 10:15 AM CDT Narrative [facility] ([facility]) - 06/02/2019 9:10 AM CDT Performed at: 01 - [address] [id number] Probation Supervisor: Tawny Celis MD, Phone: [phone] Codey Lake MD LAB - URINE CHEMISTRY ORDERABLES [facility]) [address] [place] [address] * GROSS EXAM PATHOLOGY (STL) (05/24/2019 4:35 PM CDT) Case Report Surgical Pathology Report Case: [id number] Authorizing Provider: Codey Lake, Collected: 05/24/2019 04:35 PM MD Ordering Location: Received: 05/25/2019 08:02 AM Pathologist: Sarah Ross MD Specimen: Calculus 05/26/2019 8:46 AM CDT [facility] Final Diagnosis Calculus, left kidney, removal: - Consistent with removed calculus (gross examination only). SD 05/26/2019 8:46 AM CDT [facility] Gross Description Received fresh in a container labeled Medrano, Jacqueline, and kidney stone left are two irregular, yellow-brown calculi ranging from 0.1 up to 0.3 cm. The specimen is submitted entirely for chemical analysis. JS/ns 05/26/2019 8:46 AM CDT [facility] Embedded Images 05/26/2019 8:46 AM CDT [facility] Pathology/Cytolo gy CALCULUS SPECIMEN / Unknown 05/24/2019 4:35 PM CDT 05/25/2019 8:02 AM CDT Codey Lake MD LAB - PATHOL OGY/CYTOLOGY ORDERABLES [facility] [address] [address] * CT ABDOMEN PELVIS WO CONTRAST (05/11/2019) [...] pH units Blood UA negative Negative Specific Dilley UA POCT 1.015 1.002 - 1.030 Ketone [...] POINT OF CARE (IP) (08/19/2016 7:30 AM DIRECTOR BUSINESS TRAVEL) Only the most recent of3 resultswithin the time period is included. HCG Qual Urine Negative Negative [facility] QC Verified Yes Yes [facility] POC T TESTING Urine URINE / Unknown 08/19/2016 7 :30 AM DIRECTOR BUSINESS TRAVEL Codey Lake MD LAB - POINT OF CARE ORDERABLES [facility] POCT TESTING [address] [place] [address], [facility] * URINALYSIS MICROSCOPIC ONLY REFLEXED [...] PM CDT Narrative Resulting Agency Comment [facility] [address] [facility] [phone] Bj Lynch MD LAB - URINALYSIS ORD ERABLES [facility] ACCOUNT BILL [address] [place] [address] * URINALYSIS ROUTINE W/REFLEX TO CULTURE (07/07/2016 1:23 PM CDT) Specific Dilley UA 1.017 1.005 - 1.030 [facility] ACCOUNT [...] CDT Narrative Resulting Agency Comment [facility] [address] [facility] [phone] Bj Lynch MD LAB - URINALYSIS ORD ERABLES [facility] ACCOUNT BILL [address] [place] [address] * URIC ACID BLOOD (07/07/2016 1:21 PM CDT) Uric Acid 3.6 3.0 - 8.5 mg/dL [facility] ACCOUNT BILL Blood BLOOD SPECIMEN / Unknown 07/07/2016 1:21 PM CDT 07/07/2016 7:07 PM CDT Narrative Resulting Agency Comment [facility] [address] [facility] [phone] Bj Lynch MD LAB - CHEMISTRY ORDE RABLES Performing Organization Address City/[facility]/ZIP Co de Phone Number [facility] ACCOUNT BILL [address] [place] [address] * COMPREHENSIVE METABOLIC PANEL (07/07/2016 1:21 PM [...] 7:07 PM CDT Narrative Resulting Agency Comment [facility] [address] [facility] [phone] Bj Lynch MD LAB - CHEMISTRY BEN CARLIN [facility] ACCOUNT BILL [address] [place] [address] Care Teams Net Applications Developer Relationship Specialty Start Date End Date Codey Oswald MD [address] [place] [address] [phone] PCP - General 09/06/18 MastromichalisCodey MD [address] [place] [address] [phone] Urology 07/22/16
--- OUTSIDE RECORDS SUMMARY | 2024-11-17 02:37 | XMS_ITS | Referral Summary ---
Author Organization [facility] Address [address] [place] [address] Care Team Providers Care Lead Athlete Name Role Phone Codey Oswald MD Primary Care Provider [phone] Allergies Active Allergy Reactions Criticality Noted Date [...] to remove lenses 2-3 times per day [place] (#[id number]/ [id number]) OD: dot 280, 300um uniform clearance, good [...] weeks after receiving new OD lens Ref #[id number] Assessment & Plan (06/19/2023 9:25 AM CDT): H/o poor ocular surface integrity, highly symptomatic / affecting ADL [place] (#[id number] / [id number]) OD: dot 280, 300um uniform clearance, good [...] surface integrity, highly symptomatic / affecting ADL [place] (#[id number] / [id number]) OD: dot 280, 300um uniform clearance, good [...] OD (-150um) and higher OS (+150um) Ref# [id number] / [id number] RTC for CL dispense with I/R, sooner prn. RTC with cornea as directed. 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 [place] [address] PCP - General Family Medicine 04/21/23
--- OUTSIDE RECORDS SUMMARY | 2024-11-17 02:37 | XMS_ITS | Continuity of Care Document ---
Author Organization [facility] Address [address] [place] [address] [address] [place] [address] Phone Care Team Providers Care Director Of Marketing Communications Name Role Phone Tino PTBerenice Unavailable Unavailable [...] Diagnoses Date Provider Providers Copied on Encounter [facility] [address], [place], [place], [id number], tel:[phone] [facility] Urology [facility] Muscle weakness (generalized)Other muscle spasmPelvic and perineal painOther specified disorders of muscleUrgency of urinationFrequency of micturition 8 Tino Alexandraisti. [address] [facility], [address], [place], [facility], [place]. tel:[phone] Referring Provider: De Nevarez [address], [place], [address]. tel:[phone] [facility] [address] [address], [place], [place], [id number], tel:[phone] [facility] Urology [facility] Other muscle spasmMuscle weakness (generalized)Pelvic and perineal painOther specified disorders of muscleUrgency of urinationFrequency of micturition 8 Tino Berenice. [address] [facility], [address], [place], [facility], [place]. tel:[phone] Referring Provider: De Nevarez [address], [place], [address]. tel:[phone] [facility] [address], [id number], [place] tel:[phone] [facility] Muscle weakness (generalized)Other muscle spasmPelvic and perineal painOther specified disorders of muscleUrgency of urinationFrequency of micturition 8 Tino Berenice. [address] [facility], [address], [place], [place], [facility], [place]. tel:[phone] Referring Provider: De Nevarez [address], [place], [address]. tel:[phone] [facility] [address] [facility] [address], [place], [id number], tel:[phone] [facility] Muscle weakness (generalized)Other muscle spasmPelvic and perineal painOther specified disorders of muscleUrgency of urinationFrequency of micturition Apr-1 0-201 8 Tino Berenice. [address] [place] [address], [address] [place] [address], [facility], . tel: [phone] Referring Provider: De Nevarze [address], [place], [address]. tel:[phone] [facility] [address] [facility] [address], [place], [id number], tel:[phone] [facility] Muscle weakness (generalized)Other muscle spasmPelvic and perineal painOther specified disorders of muscleUrgency of urinationFrequency of micturition Apr-0 4-201 8 Tino Berenice. [address] [place] [address], [address], [facility], [place]. tel: [phone] Referring Provider: De Nevarez [address] [facility], [place], [address]. tel:[phone] [facility] [address] [place] [address], [id number], tel:[phone] [facility] Information Dec- 0-201 4 Tino Berenice. [address] [place] [address], [address], [place], [facility], [place]. tel:[phone] Referring Provider: De Nevarez [address] [facility], [place], [address]. tel:[phone] [facility] [address] [facility] [address], [place], [id number], tel:[phone] [facility] No Information Nov0 5-201 4 Tino Berenice. [address] [place] [address], [address] [address], [place]. tel:[phone] Referring Provider: De Nevarez [address], [place], [address]. tel:[phone], [id number], tel:[phone] [facility] No Information 4 Tino Ng. [address] [facility], [place] [address], . tel:[phone] Referring Provider: De Nevarez [address], [place] [address]. tel:[phone], [id number], tel:[phone] [facility] No Information Tino Ng. [address] [facility], [place] [address], . tel:[phone] Referring Provider: De Nevarez [address], [place], [address]. tel:[phone], [id number], tel:[phone] [facility] Muscle weakness (generalized) Tino Ng. [address] [facility], [place] [address], . tel:[phone] Referring Provider: De Nevarez [address], [place], [address]. tel:[phone] Family History Family Member Type Diagnosis Age At Onset No Information Payers Payer name Insurance type Covered libertarian ID Christena freddiecarlos(s) Tagasauris [facility] [id number] Social History Type Description Quantity Date Captured [...]
--- OUTSIDE RECORDS SUMMARY | 2024-11-17 02:37 | XMS_ITS | Encounter Summary ---
Author Organization [facility] Address [address] [place] [address] Care Team Providers Care Cosmetologist Name Role Phone Codey Lake MD Unavailable [phone]- [phone] Codey Oswald MD Primary Care Provider [phone] Reason for Visit * Reason Onset Date Comments MEDICATION REFILL 05/20/2019 Encounter Details Date Type Department Care Team (Late st Contact Info) Description 05/20/2019 Refill [facility] MYCHART GENERIIC [address] [place] [address] Codey Oswald MD [facility] [place] [address] MEDICATION REFILL Social History Tobacco [...] Under Investigation 11/12/2020 11/12/2020 11/12/2020 11:10 PM STRING CUTTER documented as of this encounter Care Teams Cosmetologist Relationship Specialty Start Date End Date Codey Oswald MD [facility] [place] [id number] PCP - General 09/06/18 MastromichalisCodey MD [address] [id number] Urology 07/22/16 documented as of this encounter
--- OUTSIDE RECORDS SUMMARY | 2024-11-17 02:37 | XMS_ITS | Encounter Summary ---
Author Organization [facility] Address [address] [place] [address] Care Team Providers Care Distribution Lineman Name Role Phone Codey Lake MD Unavailable [phone]- [phone] Codey Oswald MD Primary Care Provider [phone]- [phone] Reason for Visit * Reason Onset Date Comments Future Appointment 11/26/2020 Encounter Details Date Type Department Care Team (Late st Contact Info) Description 11/26/2020 Telephone [facility] [address] [place], [place] [id number] Estrella Henson MD [address] [id number] Future Appointment Social History Tobacco Use Types [...] Jacqueline's appt cancelled today. Rescheduled f/u appt. PROOF DOOR MAKER * Telephone Encounter - Chantelle Macias - 11/26/2020 9:01 AM CST Pt calling to report symptoms: running nose and cough. Pt is not sure if she should keep her appt today? CB #: [phone] PROOF DOOR MAKER documented in this encounter Plan of Treatment Not on file documented as of this encounter Visit Diagnoses Not on filedocumented in this encounter Care Teams Distribution Lineman Relationship Specialty Start Date End Date Codey Oswald MD [address] [place] [id number] PCP - General 09/06/18 MastromichalCodey rose MD [address] [place] [address] JACI LEE [id number] Urology 07/22/16 documented as of this encounter
--- OUTSIDE RECORDS SUMMARY | 2024-11-17 02:37 | XMS_ITS | Referral Summary ---
Author Organization [facility] Address [address] [facility] [place] [address] Care Team Providers Care Lubricating Machine Tender Name Role Phone Codey Lake MD Unavailable [phone]- [phone] Codey Oswald MD Primary Care Provider [phone]- [phone] Source Comments [facility],non-owned Affiliates and Associated Physician Practices is amultiple site organization consisting of ambulatory clinics and hospital sitesin [place], [place], [place] and [place]. This disclosure is being madepursuant to the Care Everywhere program and may not contain all information available regarding this patient. Last updated 18.[facility] Allergies Active Allergy Reactions Criticality Noted Date [...] on file Medical Devices Implanted Type Area Brim Pouncer Machine Operator Device Identifier Shelf Expiration Date Model / Serial / Lot Stent Uret 4.8fr 22-30cm Pgtl Crv Tpr Implanted:Qty: 1 on 08/08/2016 by Codey Lake MD at [facility] Left: Ureter [employer] 02/06/2019 [id number] / / [id number] Set Stent Blk 22cm 6fr .038in 2 Pgtl Crv Implanted:Qty: 1 on 05/24/2019 by Codey Lake MD at [facility] Left: Ureter [employer] 03/30/2022 [id number] / / [id number] Mirena Intrauterine Device Implanted:Qty: 1 on 11/14/2020 by Estrella Henson MD at [facility] N/A: Uterus 02/18/2023 [id number] / [id number] / [id number] Administered Medications Care Teams Lubricating Machine Tender Relationship Specialty Start Date End Date Codey Oswald MD [address] [place] [id number] PCP - General 09/06/18 MastCodey xiong MD [address] [place] [id number] Urology 07/22/16
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
[2024-11-17 02:57] VITALS: BP 99/70; PULSE 72; RESP 18; O2SAT 100
[2024-11-17] MEDS: ONDANSETRON INJ 4 MG/2 ML VIAL IV PUSH (02:58)
[2024-11-17] MEDS: KETOROLAC 15 MG/ML VIAL (*BKC) IV PUSH (02:59)
[2024-11-17 03:01] VITALS: BP 109/73
[2024-11-17 03:42] VITALS: BP 124/67; PULSE 74; RESP 13; TEMP 36.6; O2SAT 97
--- NOTE | 2024-11-17 03:43 | PC.NURSE ---
Patient states that she got itchy all over when they went inside my body . When patient elaborated she states that when the IV was established her IV set/left arm started to feel itchy. Patient also states that it feels like her chest is starting to pound. Notified EDP Dr. Cotton.
== END 2024-11-17 04:57 | disposition home or self-care (01) ==
PROVIDERS: Emergency Provider Student in an Organized Health Care Education/Training Program; PCP Nurse Practitioner Family
DX: R07.89 Other chest pain (principal)
CPT/HCPCS: 36415; 71046; 80053; 83690; 84484; 85025; 85380; 85610; 85730; 93005; 96374; 96375; 99284; J1885; J2405

== ENCOUNTER 2025-01-06 10:45 | Outpatient (CLI) | payer BC, SELFPAY ==
--- OUTSIDE RECORDS SUMMARY | 2025-01-06 10:52 | XMS_ITS | Clinical Summary ---
Author Organization [facility] Address [address] [place] [address] Care Team Providers Care Blocker And Polisher Gold Wheel Name Role Phone Codey Oswald MD Primary Care Provider +1 -[phone] Allergies Active Allergy Reactions Criticality Noted Date [...] to remove lenses 2-3 times per day [place] (#795857/ [id number]) OD: dot 280, 300um uniform clearance, good [...] weeks after receiving new OD lens Ref #[id number] Assessment & Plan (06/19/2023 9:25 AM CDT): H/o poor ocular surface integrity, highly symptomatic / affecting ADL [place] (#698846 / [id number]) OD: dot 280, 300um uniform clearance, good [...] surface integrity, highly symptomatic / affecting ADL [place] (#992498 / 110791) OD: dot 280, 300um uniform clearance, good [...] OD (-150um) and higher OS (+150um) Ref# [id number] / [id number] RTC for CL dispense with I/R, sooner [...] (Added by TW Conv) Diabetes Other Diabetes [facility] - (Added by TW Conv) Relation Name Status Comments Father Mother Other Social History Tobacco Use Types Packs/Day Years Used Date Smoking Tobacco: Never Smokeless Tobacco: Never Tobacco Cessation:Counseling Given: Not Answered Comments Unknown Sex and Gender Information Value Date Recorded Sex Assigned at Not on file Legal 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 Gender Identity Female 01/23/2023 11:52 AM CDT [...] 5 season) 2024 03/29/2021, 03/08/2021 Influenza Vaccine (Season Ended) 2025 DTaP/Tdap/Td Vaccine (3 - Td or Tdap) 04/14/2029 04/14/2019, 11/24/2010 HPV Vaccines Aged Out No longer eligi ble based on patient's age to complete this topic Pneumococcal vaccine <65 Aged Out No longer eligible based on patient's age to complete this topic Insurance [facility] Care Teams Blocker And Polisher Gold Wheel Relationship Specialty Start Date End Date Codey Oswald MD [address] [address] [place] [address] PCP - General Family Medicine 04/21/23
--- OUTSIDE RECORDS SUMMARY | 2025-01-06 10:52 | XMS_ITS ---
Author Organization [facility] [employer] Address [address] [facility] [address] [place] [address] Care Team Providers Care Bilingual Recruiter Name Role Phone Unavailable Primary Care Physician Unavailab le Medications Name Start Date Expiration Date SIG Comments Mirena 21 mcg/24 hr (up to 8 years) 52 mg intrauterine device 04/04/2024 04/05/2024 place 1 device by intrauterine route once Payers Insurance Name Company Name Plan Name Plan Number Policy Num nilesh Policy Group Number Start Date Cigna Cigna [id number] N/A History of Encounters Visit Date Visit Type Provider 04/04/2024 My-IUD Tele-Med Consult Dr. Jose Guadalupe Castillo MD
--- OUTSIDE RECORDS SUMMARY | 2025-01-06 10:52 | XMS_ITS | Encounter Summary ---
Author Organization [facility] Address [address] [facility] [place] [address] Care Team Providers Care Logistics And Planning Manager Name Role Phone Codey Lake MD Unavailable +1- [phone] Codey Oswald MD Primary Care Provider +1- [phone] Reason for Visit * Reason Onset Date Comments MEDICATION REFILL 05/20/2019 Encounter Details Date Type Department Care Team (Late st Contact Info) Description 05/20/2019 Refill [facility]ART [facility] [address] [place] [address] Codey Oswald MD [facility] [place] [address] MEDICATION REFILL Social History Tobacco Use Types Packs/Day Years Used Date Smoking Tobacco: Never Smokeless Tobacco: Never Alcohol Use Standard Drinks/Week Comments No 0 (1 standard drink = 0.6 oz pur e alcohol) Comments No Sex and Gender Information Value Date Recorded Sex Assigned at Not on file Legal Sex Female 2:42 PM CDT Gender Identity Not on file Sexual Orientation Not on file 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 Answer Date of Assessment Author No 08/19/2016 11:08 AM Kristie Minaya RN * Is person blind or have serious difficulty seeing? Answer Date of Assessment Author No 08/19/2016 11:08 AM Kristie Minaya RN * Does person have serious difficulty walking/climbing stairs? Answer Date of Assessment Author No 08/19/2016 11:08 AM Kristie Minaya RN * Does person have difficulty dressing/bathing? Answer Date of Assessment Author No 08/19/2016 11:08 AM Kristie Minaya RN * Does person have difficulty doing errands alone? Answer Date of Assessment Author No 08/19/2016 11:08 AM Kristie Minaya RN documented as of this encounter Mental Status * Does person have difficulty concentrating/remembering/making decisions? 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
--- OUTSIDE RECORDS SUMMARY | 2025-01-06 10:52 | XMS_ITS | Referral Summary ---
Author Organization [facility] Address [address] [place] [address] Care Team Providers Care Casting Molder Name Role Phone Codey Oswald MD Primary Care Provider +1 -[phone] Allergies Active Allergy Reactions Criticality Noted Date [...] to remove lenses 2-3 times per day [place] (#344859/ 005823) OD: dot 280, 300um uniform clearance, good [...] weeks after receiving new OD lens Ref #[id number] Assessment & Plan (06/19/2023 9:25 AM CDT): H/o poor ocular surface integrity, highly symptomatic / affecting ADL [place] (#247192 / 780004) OD: dot 280, 300um uniform clearance, good [...] surface integrity, highly symptomatic / affecting ADL [place] (#637995 / [id number]) OD: dot 280, 300um uniform clearance, good [...] OD (-150um) and higher OS (+150um) Ref# [id number] / [id number] RTC for CL dispense with I/R, sooner prn. RTC with cornea as directed. 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
--- OUTSIDE RECORDS SUMMARY | 2025-01-06 10:52 | XMS_ITS | Encounter Summary ---
Author Organization [facility] Address [address] [place] [address] Care Team Providers Care Director Fundraising Name Role Phone Codey Lake MD Unavailable +1- [phone] Codey Oswald MD Primary Care Provider +1- [phone] Reason for Visit * Reason Onset Date Comments MEDICATION REFILL 06/01/2019 Encounter Details Date Type Department Care Team (Late st Contact Info) Description 06/01/2019 Refill [facility] - [facility] Op [address] [place] [address] Codey Lake MD [address] [facility] [address] [address] [address] MEDICATION REFILL Social History Tobacco Use Types [...] 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
--- OUTSIDE RECORDS SUMMARY | 2025-01-06 10:52 | XMS_ITS | Clinical Summary ---
Author Organization [facility] Address [address] [place] [address] Care Team Providers Care Medical Research Tech Name Role Phone Codey Oswald MD Primary Care Provider +1- [phone] Allergies Active Allergy Reactions Criticality Noted Date [...] of 3 - 19+ 3-dose series) 2006 HPV/Cotest (21-29) 2008 PAP SMEAR 2008 CERVICAL CANCER SCREENING 2017 HPV/Cotest (30-65) 2017 PAP SMEAR 2017 DTAP/TDAP/TD VACCINES (2 - T d or Tdap) 11/24/2020 11/24/2010 INFLUENZA VACCINE (#1) 2024 HPV VACCINES Aged Out No longer eligi ble based on patient's age to complete this topic PNEUMOCOCCAL VACCINE 0-49 YEARS Aged Out No longer eligible based on patient's age to complete this topic Insurance [facility] PPO Care Teams Medical Research Tech Relationship Specialty Start Date End Date Codey Oswald MD PCP - General Family Practice 12/05/19
--- OUTSIDE RECORDS SUMMARY | 2025-01-06 10:52 | XMS_ITS | Encounter Summary ---
Author Organization [facility] Address [address] [place] [address] Care Team Providers Care Certified Legal Investigator Name Role Phone Codey Lake MD Unavailable +1- [phone] Codey Oswald MD Primary Care Provider +1- [phone] Reason for Visit * Reason Onset Date Comments Future Appointment 11/26/2020 Encounter Details Date Type Department Care Team (Late st Contact Info) Description 11/26/2020 Telephone [facility] [address] [place], [place] [phone] Estrella Henson MD [address] [phone] Future Appointment Social History Tobacco Use Types [...] of Binge Drinking Not on file 10/2020 Comments No Sex and Gender Information Value Date Recorded Sex Assigned at Not on file Legal Sex Female 2:42 PM CDT Gender Identity Not on file Sexual Orientation Not on file 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 Rescheduled f/u appt. 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 Pt is not sure if she should keep her appt today? CB #: [phone] EL PAINTER documented in this encounter Plan of Treatment Not on file documented as of this encounter Visit Diagnoses Not on filedocumented in this encounter Care Teams Certified Legal Investigator Relationship Specialty Start Date End Date Codey Oswald MD [address] [place] [phone] PCP - General 09/06/18 Mastromicelpidio, Codey Sandoval MD [address] [phone] Urology 07/22/16 documented as of this encounter
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
== END 2025-01-06 10:46 | disposition home or self-care (01) ==
LOC: ANHSURGERY 10:48
PROVIDERS: PCP Nurse Practitioner Family; Visit Provider Obstetrics & Gynecology
DX: N80.9 Endometriosis, unspecified (principal)
CPT/HCPCS: 36415; 86850; 86900; 86901

== ENCOUNTER 2025-01-11 01:00 | Day surgery (SDC) | payer BC, SELFPAY ==
[2025-01-04 14:59] VITALS: BMI 33.0
--- NOTE | 2025-01-04 15:06 | PC.NURSE ---
Report to the Outpatient Waiting Room, entrance under the green pavilion located off [facility], at time _1100_ on date _[id number]_. Planned Procedure Time: _1pm_.? Time changes happen often and if your time is changed the preop area will call you the afternoon before. - You and your visitor will be asked to self-screen and do not enter if you have any COVID symptoms. Please call surgeon if you need to reschedule. - A mask is optional within the hospital at this time. Patients may have clear liquids (water, carbonated beverages, clear teas, apple juice) until 3 hours prior to surgery with a maximum of 20 ounces. - No food from midnight until time of surgery and no smoking, or chewing tobacco (or any form of nicotine). No chewing gum, candy or mints. Take only the following medications with a SIP of water on the morning of surgery: ___Gabapentin, Fluoxetine and if needed pain, nausea medicine, and or inhaler.____ DO NOT STOP ANY OF YOUR OTHER PRESCRIPTION MEDICATIONS PRIOR TO SURGERY EXCEPT THE FOLLOWING Hold all vitamins and supplements for 3 days per anesthesiologist. Medications to discontinue per physician Date to take last dose Please no make-up, nail libyan, hairspray, perfume, deodorant, or body powder the day of surgery.? No jewelry (including any body piercings) or valuables the day of surgery, leave them at home.? Please take a shower or bath the night before, or the morning of, surgery with an antibacterial soap.? Wear comfortable, loose fitting clothing.? - Jewelry must be removed prior to entering the operating room.? Rings and piercings that are not removed may be cut off. - The hospital will not accept responsibility for valuables.? - Please leave all valuables, including medications, at home the day of surgery. If you are going home after surgery, a licensed courtesy bus driver must drive you home.? - NO public transportation without another adult if you receive anesthesia. - We recommend that an adult stay with you for 24 hours following discharge. - We also recommend that you do not drive, make important decision, drink alcoholic beverages, or take any drugs that were not prescribed by your health care provider for at least 24 hours after your discharge time. Follow any additional instructions given to you from your surgeon. Telephone instructions given to __Shetano__and asked if any additional questions and then verbalized understanding. Patient advised to call surgeon office or pre surgery nurse liaison [phone] if any additional questions.
[2025-01-11] VITALS (10 sets, daily range): BP systolic 106–117; BP diastolic 57–85; PULSE 77–108; RESP 12–19; TEMP 36.4–37.2; O2SAT 95–100
--- OUTSIDE RECORDS SUMMARY | 2025-01-11 01:03 | XMS_ITS | Clinical Summary ---
Author Organization [facility] [address] Address [address] [place] [address] Care Team Providers Care Service Station Console Operator Name Role Phone Codey Oswald MD Primary Care Provider +1- [phone] Allergies Active Allergy Reactions Criticality Noted Date [...] 19+ 3-dose series) 2006 HPV/Cotest (21-29) 2008 CERVICAL CANCER SCREENING 2017 HPV/Cotest (30-65) 2017 PAP SMEAR 2017 DTAP/TDAP/TD VACCINES (2 - T d or Tdap) 11/24/2020 11/24/2010 INFLUENZA VACCINE (#1) 2024 HPV VACCINES Aged Out No longer eligi ble based on patient's age to complete this topic Insurance [place] [id number] Care Teams Service Station Console Operator Relationship Specialty Start Date End Date Codey Oswald MD PCP - General Family Practice 12/05/19
--- OUTSIDE RECORDS SUMMARY | 2025-01-11 01:04 | XMS_ITS | Clinical Summary ---
Author Organization [facility] Address [address] [facility] [place] [address] Care Team Providers Care Paper Guillotine Operator Name Role Phone Codey Lake MD Unavailable +1- [phone] Codey Oswald MD Primary Care Provider +1- [phone] Source Comments [facility],non-owned Affiliates and Associated Physician Practices is amultiple site organization consisting of ambulatory clinics and hospital sitesin [place], [place], [place] and [place]. This disclosure is being madepursuant to the Care Everywhere program and may not contain all information available regarding this patient. Last updated 18[facility] [employer] Allergies Active Allergy Reactions Criticality Noted Date [...] this topic Medical Devices Implanted Type Area Ocean Lifeguard Device Identifier Shelf Expiration Date Model / Serial / Lot Stent Uret 4.8fr 22-30cm Pgtl Crv Tpr Implanted:Qty: 1 on 08/08/2016 by Codey Lake MD at [facility] Left: Ureter [employer] 02/06/2019 [id number] / / [id number] Set Stent Blk 22cm 6fr .038in 2 Pgtl Crv Implanted:Qty: 1 on 05/24/2019 by Codey Lake MD at [facility] Left: Ureter [employer] 03/30/2022 [id number] / / [id number] Mirena Intrauterine Device Implanted:Qty: 1 on 11/14/2020 by Estrella Henson MD at [facility] N/A: Uterus 02/18/2023 [id number] / [id number] / [id number] [facility] Care Teams Paper Guillotine Operator Relationship Specialty Start Date End Date Codey Oswald MD [address] [place] [phone] PCP - General 09/06/18 Codey Lake MD [address] [place] [address] [place] [address] Urology 07/22/16
--- OUTSIDE RECORDS SUMMARY | 2025-01-11 01:04 | XMS_ITS | Encounter Summary ---
Author Organization [facility] Address [address] [place] [address] Care Team Providers Care Ship'S Pilot Name Role Phone Codey Lake MD Unavailable +1- [phone] Codey Oswald MD Primary Care Provider +1- [phone] Reason for Visit * Reason Onset Date Comments MEDICATION REFILL 06/01/2019 Encounter Details Date Type Department Care Team (Late st Contact Info) Description 06/01/2019 Refill [facility] [place] Op [address] [place] [address] Codey Lake MD [address] [facility] [address] [address] [address] MEDICATION REFILL Social History Tobacco [...] 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
--- OUTSIDE RECORDS SUMMARY | 2025-01-11 01:04 | XMS_ITS | Referral Summary ---
Author Organization [facility] Address [address] [place] [address] Care Team Providers Care Flag Signalman Name Role Phone Codey Oswald MD Primary Care Provider +1 -[phone] Allergies Active Allergy Reactions Criticality Noted Date [...] to remove lenses 2-3 times per day [place] (#136050/ 153137) OD: dot 280, 300um uniform clearance, good [...] weeks after receiving new OD lens Ref #[id number] Assessment & Plan (06/19/2023 9:25 AM CDT): H/o poor ocular surface integrity, highly symptomatic / affecting ADL [place] (#343333 / 108719) OD: dot 280, 300um uniform clearance, good [...] surface integrity, highly symptomatic / affecting ADL [place] (#749952 / 431215) OD: dot 280, 300um uniform clearance, good [...] OD (-150um) and higher OS (+150um) Ref# [id number] / [id number] RTC for CL dispense with I/R, sooner prn. RTC with cornea as directed. Blood in urine 06/06/2010 Calculus of kidney 06/06/2010 Social History Tobacco Use Types Packs/Day Years Used Date Smoking Tobacco: Never Smokeless Tobacco: Never Tobacco Cessation:Counseling Given: Not Answered Comments Unknown Sex and Gender Information Value Date Recorded Sex Assigned at Not on file Legal Sex Female 3:18 PM PIPER HELPER Gender Identity Female 01/23/2023 11:52 AM CDT [...] Plan of Treatment Not on file [place] [facility] Care Teams Flag Signalman Relationship Specialty Start Date End Date Codey Oswald MD [facility] [facility] [place] [address] PCP - General Family Medicine 04/21/23
--- OUTSIDE RECORDS SUMMARY | 2025-01-11 01:04 | XMS_ITS | Clinical Summary ---
Author Organization [facility] Address [address] [place] [address] Care Team Providers Care Supervisor Waterproofing Name Role Phone Codey Oswald MD Primary Care Provider +1 -[phone] Allergies Active Allergy Reactions Criticality Noted Date [...] to remove lenses 2-3 times per day [place] (#674974/ 603266) OD: dot 280, 300um uniform clearance, good [...] weeks after receiving new OD lens Ref #[id number] Assessment & Plan (06/19/2023 9:25 AM CDT): H/o poor ocular surface integrity, highly symptomatic / affecting ADL [place] (#761191 / 368048) OD: dot 280, 300um uniform clearance, good [...] surface integrity, highly symptomatic / affecting ADL [place] (#535788 / 844275) OD: dot 280, 300um uniform clearance, good [...] OD (-150um) and higher OS (+150um) Ref# [id number] / [id number] RTC for CL dispense with I/R, sooner [...] (Added by TW Conv) Diabetes Other Diabetes [facility] - (Added by TW Conv) Relation Name Status Comments Father Mother Other Social History Tobacco Use Types Packs/Day Years Used Date Smoking Tobacco: Never Smokeless Tobacco: Never Tobacco Cessation:Counseling Given: Not Answered Comments Unknown Sex and Gender Information Value Date Recorded Sex Assigned at Not on file Legal Sex Female 3:18 PM TV HOST Gender Identity Female 01/23/2023 11:52 AM CDT [...] patient's age to complete this topic Insurance [facility] Care Teams Supervisor Waterproofing Relationship Specialty Start Date End Date Codey Oswald MD [address] [facility] [address] [place] [address] PCP - General Family Medicine 04/21/23
--- OUTSIDE RECORDS SUMMARY | 2025-01-11 01:04 | XMS_ITS ---
Author Organization [facility] [place] Address [address] [facility] [address] [place] [address] Care Team Providers Care Lumber Chain Offbearer Name Role Phone Unavailable Primary Care Physician Unavailab le Medications Name Start Date Expiration Date SIG Comments Mirena 21 mcg/24 hr (up to 8 years) 52 mg intrauterine device 04/04/2024 04/05/2024 place 1 device by intrauterine route once Payers Insurance Name Company Name Plan Name Plan Number Policy Num nilesh Policy Group Number Start Date Cigna Cigna [id number] N/A History of Encounters Visit Date Visit Type Provider 04/04/2024 My-IUD Tele-Med Consult Dr. Jose Guadalupe Castillo MD
--- OUTSIDE RECORDS SUMMARY | 2025-01-11 01:04 | XMS_ITS | Continuity of Care Document ---
Author Organization [facility] Address [address] [place] [address] [address] [place] [address] Phone Care Team Providers Care Filling Hand Name Role Phone Tino PTBerenice Unavailable Unavailable [...] Diagnoses Date Provider Providers Copied on Encounter [facility] [address], [place], [place], [id number], tel:[phone] [facility] Muscle weakness (generalized)Other muscle spasmPelvic and perineal painOther specified disorders of muscleUrgency of urinationFrequency of micturition 8 Tino Alexandraisti. [address] [facility], [address], [place], [facility] [place][note 2], [place]. tel:[phone] Referring Provider: De Nevarez [address], [place], [address]. tel:[phone] [facility] [address] [address], [place], [place], [id number], tel:[phone] [facility] Other muscle spasmMuscle weakness (generalized)Pelvic and perineal painOther specified disorders of muscleUrgency of urinationFrequency of micturition 8 Tino Berenice. [address] [facility], [address], [place], [facility] [place][note 2], [place]. tel:[phone] Referring Provider: De Nevarez [address], [place], [address]. tel:[phone] [facility] [address], [id number], [place] tel:[phone] [facility] Muscle weakness (generalized)Other muscle spasmPelvic and perineal painOther specified disorders of muscleUrgency of urinationFrequency of micturition 8 Tino Berenice. [address] [facility], [address], [place], [place], [facility] [place][note 2], [place]. tel:[phone] Referring Provider: De Nevarez [address], [place], [address]. tel:[phone] [facility] [address]121 [facility] [address], [place], [id number], tel:[phone] [facility] Muscle weakness (generalized)Other muscle spasmPelvic and perineal painOther specified disorders of muscleUrgency of urinationFrequency of micturition Apr-1 0-201 8 Tino Berenice. [address] [place] [address], [address] [place] [address], [facility] [place][note 2], . tel: [phone] Referring Provider: De Nevarez [address], [place], [address]. tel:[phone] [facility] [address] [facility] [address], [place], [id number], tel:[phone] [facility] Muscle weakness (generalized)Other muscle spasmPelvic and perineal painOther specified disorders of muscleUrgency of urinationFrequency of micturition Apr-0 4-201 8 Tino Berenice. [address] [place] [address], [address], [facility] [place][note 2], [place]. tel: [phone] Referring Provider: De Nevarez [address] [place], [place], [address]. tel:[phone] [facility] [address] [place] [address], [id number], tel:[phone] [facility] Information Dec- 0-201 4 Tino Berenice. [address] [place] [address], [address], [place], [facility] [place][note 2], [place]. tel:[phone] Referring Provider: De Nevarez [address] [place], [place], [address]. tel:[phone] [facility] [address] [facility] [address], [place], [id number], tel:[phone] [facility] No Information Nov0 5-201 4 Tino Berenice. [address] [place] [address], [address] [address], [place]. tel:[phone] Referring Provider: De Nevarez [address], [place], [address]. tel:[phone], [id number], tel:[phone] [facility] No Information 4 Tino Ng. [address] [facility], [place] [address], . tel:[phone] Referring Provider: De Nevarez [address], [place] [address]. tel:[phone], [id number], tel:[phone] [facility] No Information Tino Ng. [address] [facility], [place] [address], . tel:[phone] Referring Provider: De Nevarez [address], [place], [address]. tel:[phone], [id number], tel:[phone] [facility] Muscle weakness (generalized) Tino Ng. [address] [facility], [place] [address], . tel:[phone] Referring Provider: De Nevarez [address], [place], [address]. tel:[phone] Family History Family Member Type Diagnosis Age At Onset No Information Payers Payer name Insurance type Covered republican ID Christena freddiecarlos(s) [employer] [facility] [id number] Social History Type Description Quantity Date Captured [...]
--- OUTSIDE RECORDS SUMMARY | 2025-01-11 01:04 | XMS_ITS | Encounter Summary ---
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 Rescheduled f/u appt. 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 Pt is not sure if she should keep her appt today? CB #: [phone] RACTIVE PRODUCER documented in this encounter Plan of Treatment Not on file documented as of this encounter Visit Diagnoses Not on filedocumented in this encounter Care Teams Ditcher Relationship Specialty Start Date End Date Codey Oswald MD [address] [place] [phone] PCP - General 09/06/18 Mastromicelpidio, Codey Sandoval MD [address] [phone] Urology 07/22/16 documented as of this encounter
--- OUTSIDE RECORDS SUMMARY | 2025-01-11 01:04 | XMS_ITS | Encounter Summary ---
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
[2025-01-11] MEDS: ACETAMINOPHEN 500 MG TABLET 1000 MG PO ×2 (11:30→17:48)
[2025-01-11] MEDS: LACTATED RINGERS 1,000 ML 30 ML IV CONT ×2 (11:35→15:01)
[2025-01-11] MEDS: KETOROLAC 15 MG/ML VIAL (*BKC) IV PUSH (11:40)
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
[2025-01-11 11:51] LABS: BEDSIDEPREGUCG Negative (Negative)
--- NOTE | 2025-01-11 12:07 | WPDHPUPDATE1 ---
History and Physical Update Update Date/Time: 01/11/25 12:07 History and Physical has been reviewed, including an updated exam of the patient. There are NO changes in the patient's condition. Risks, benefits, and alternatives have been discussed and questions answered. Patient agrees to proceed with procedure.
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
[2025-01-11] MEDS: ceFAZolin 2 GM/D5W 50 ML 2 GM/50 ML BAG IVPB (13:18)
--- NOTE | 2025-01-11 14:46 | W.PM.PROC2 ---
Procedure Note - Detailed Date of Procedure 01/11/25 Pre-op Diagnosis Pelvic Pain, Endometriosis, Hx of Abnormal Pap Post-op Diagnosis Same Procedure Performed Robotic assisted total vaginal hysterectomy with bilateral salpingectomies Surgeon Joseph Camacho MD Anesthesia General Findings Normal-appearing uterus, tubes and ovaries. IUD strings noted at the cervix. Description of Procedure The patient was taken to the operating room where general endotracheal anesthesia was administered. She was prepared and draped in the usual sterile fashion in the dorsal lithotomy position. The bladder was drained with Munoz catheter. The cervix was visualized and the anterior lip was grasped using a single-tooth tenaculum. The cervix was gently dilated using Hegar dilators. The VALARIE 2 uterine manipulator was then placed and the tenaculum was removed. Gloves were changed and attention was turned to the abdomen. A supraumbilical skin incision was made with the scalpel. The Veress needle was advanced and pneumoperitoneum was administered using carbon dioxide gas. The bladeless trocar was then advanced. Intraperitoneal placement was confirmed using the laparoscope. Lateral ports and an assistant store leader port were all placed using bladeless trocars under direct laparoscopic visualization. She was placed in Trendelenburg position and the patient cart was docked. I assumed the console. The ureters were visualized bilaterally. The round ligament on the right was divided. The Fallopian tube was dissected off the right ovary, and the uteroovarian ligament was divided. The broad ligament was divided, skeletonizing the uterine artery on the right. The bladder was reflected away. The left side was similarly dissected. Colpotomy was performed circumferentially. The specimen was removed and passed off to be sent to pathology. The vaginal cuff was reapproximated using 0 Vicryl in interrupted [id number] fashion. The pelvis was irrigated copiously using warmed normal saline. Rigorous hemostasis was assured. Surgicel powder was applied to the vaginal cuff. The pedicles were inspected once again. The ports were then withdrawn and the gas was allowed to escape. The skin incisions were reapproximated using 4 0 Monocryl in interrupted subcuticular fashion. Dermaflex was applied externally. Sponge, lap, needle and instrument counts were correct. The patient was awakened and taken to the recovery room in stable condition. I was present and scrubbed through the entire procedure. Estimated Blood Loss 50 Drains Yes (munoz) Packing No Pathology Yes (Uterus, cervix, bilateral Fallopian tubes) Complications None Condition Stable Disposition PACU
--- NOTE | 2025-01-11 14:55 | PM.DS ---
DS: Admitting Diagnosis Discharge Date 01/12/25 Admitting Diagnosis Pelvic pain Endometriosis Abnormal pap DS: Discharge Diagnosis Discharge Diagnosis (1) Endometriosis: Code(s): N80.9 - Endometriosis, unspecified Status: Acute (2) Pelvic pain: Code(s): R10.2 - Pelvic and perineal pain Status: Acute (3) HSIL (high grade squamous intraepithelial lesion) on Pap smear of cervix: Code(s): R87.613 - High grade squamous intraepithelial lesion on cytologic smear of cervix (HGSIL) Status: Acute DS: Summary Hospital Course Hospital Course: She underwent robotic assisted total vaginal hysterectomy with bilateral salpingectomies. Postoperatively she did well. She was voiding, tolerating a regular diet, with good pain control. She was able to go home on POD1. DS: Data Data Completed and Pending Pending studies at discharge: Pending at discharge 01/11/25 14:13 Surgical [PTH] Routine Labs on day of discharge: Labs from last 24 hours 01/11/25 11:49 POC Urine HCG, Qual Negative Discharge Plan Discharge Patient Disposition: Home Discharge Instructions: Nothing in the vagina for 6 weeks. Call or return if temperature above 100.4? F, increased abdominal pain, increased vaginal bleeding or any new problems. Patient Language: St Helenian Stand Alone Forms: General Discharge Instructions Follow-up/Referrals: Joseph Camacho MD [Physician] - 2 Weeks Discharge Medications: New oxycodone-acetaminophen [Endocet] 5-325 mg tablet 1 - 2 tablet PO Q6H PRN (Reason: pain) Qty: 30 0RF ibuprofen 600 mg tablet 600 mg PO Q6H PRN (Reason: cramps) Qty: 30 0RF Continued albuterol sulfate [Ventolin HFA] 90 mcg/actuation HFA aerosol inhaler 2 puff inhalation Q4H PRN (Reason: shortness of breath or wheezing) Qty: 8.5 0RF cetirizine [Zyrtec] 10 mg tablet 10 mg PO DAILY cyclobenzaprine 10 mg tablet 10 mg PO TID PRN (Reason: muscle spasm) Qty: 15 0RF gabapentin 300 mg capsule 300 mg PO BID Qty: 60 3RF Rx Instructions: DUE FOR APPOINTMENT IN JUNE sucralfate [Carafate] 1 gram tablet 1 g PO Q4H PRN (Reason: abdominal pain) Qty: 90 1RF fluoxetine 40 mg capsule 80 mg PO DAILY Qty: 180 1RF hyoscyamine sulfate [Levbid] 0.375 mg tablet extended release 12 hr 0.375 mg PO BID Qty: 180 1RF ssutgnuvzz-vfrkvapseb-waw-cod [Fioricet with Codeine] 51-202-10-30 mg capsule 1 cap PO Q4H PRN (Reason: pain) Qty: 30 0RF pantoprazole 40 mg tablet,delayed release (DR/EC) 40 mg PO QAM Qty: 90 0RF Rx Instructions: take first thing in the morning on an empty stomach ondansetron HCl 4 mg tablet 4 mg PO Q8H Qty: 20 1RF valacyclovir [Valtrex] 1 gram tablet 1,000 mg PO Q8H Qty: 21 3RF Discontinued hydrocodone-acetaminophen 5-325 mg tablet 1 tablet PO Q6H PRN (Reason: pain) Qty: 20 0RF
[2025-01-11] MEDS: fentaNYL CITRATE INJ (*CRX) 100 MCG/2 ML VIAL 25 MCG IV PUSH ×5 (15:10→15:30)
[2025-01-11] MEDS: HYDROmorphone HCL INJ (*CRX) 1 MG/ML SYR 0.5 MG IV PUSH ×2 (15:39→15:56)
[2025-01-11] MEDS: diphenhydrAMINE HCl INJ 50 MG/ML VIAL 25 MG IV PUSH (15:39)
[2025-01-11] MEDS: ONDANSETRON INJ 4 MG/2 ML VIAL IV PUSH (15:45)
--- NOTE | 2025-01-11 16:40 | OBPPTRN ---
Patient transferred to post room #289 via bed. Support person present. Oriented to unit, room, information board, and admission packet. Patient verbalizes understanding. Pt does not have a munoz catheter in at this time, told to call out for assistance to the bathroom, call light within reach.
[2025-01-11] MEDS: DEXTROSE 5%/0.45% SOD CHL 1,000 ML 125 ML IV CONT (17:26)
[2025-01-11] MEDS: SIMETHICONE 80 MG TAB.CHEW PO (17:48)
[2025-01-11] MEDS: GABAPENTIN 300 MG CAPSULE PO (17:48)
[2025-01-11] MEDS: DOCUSATE SODIUM 100 MG CAPSULE PO (17:48)
[2025-01-11] MEDS: KETOROLAC 30 MG/ML VIAL (*BKC) IV PUSH (17:48)
[2025-01-11] MEDS: oxyCODONE HCL (*CRX) 5 MG TAB IR 10 MG PO (18:53)
[2025-01-11] MEDS: MORPHINE SULFATE (*CRX) 4 MG/ML INJ IV PUSH (21:44)
[2025-01-11] MEDS: ENOXAPARIN 40 MG/0.4 ML SYRINGE SUB-Q (21:45)
[2025-01-12] MEDS: KETOROLAC 30 MG/ML VIAL (*BKC) IV PUSH ×2 (00:05→06:24)
[2025-01-12] MEDS: ACETAMINOPHEN 500 MG TABLET 1000 MG PO ×2 (00:05→06:23)
[2025-01-12] MEDS: MORPHINE SULFATE (*CRX) 4 MG/ML INJ IV PUSH ×2 (01:22→07:53)
[2025-01-12] MEDS: oxyCODONE HCL (*CRX) 5 MG TAB IR 10 MG PO (03:53)
[2025-01-12 04:00] VITALS: BP 112/60; PULSE 82; RESP 16; TEMP 36.4; O2SAT 98
[2025-01-12 04:37] LABS: Basophils Percent Auto 0.1 % (0.2-1.2); Hematocrit 39.9 % (37.0-47.0); Hemoglobin 12.9 g/dL (12.0-15.0); Immature Granulocyte Absolute 0.03 K/mm3 (0.00-0.031); Immature Granulocyte Percent A 0.3 % (0-0.5); Lymphocytes Absolute Auto 1.14 K/mm3 (0.9-3.2); Lymphocytes Percent Auto 12.1 % (18.3-44.2); Mean Corpuscular HGB Conc 32.3 g/dl (32-36); Mean Corpuscular Hemoglobin 30.6 pg (26-34); Mean Corpuscular Volume 94.8 fl (80-100); Mean Platelet Volume 9.8 fl (7.4-10.4); Monocytes Absolute Auto 0.5 K/mm3 (0.1-0.6); Monocytes Percent Auto 5.5 % (2.6-8.5); Neutrophils Absolute Auto 7.7 K/mm3 (1.3-6.7); Platelet Count Result 217 k/mm3 (150-375); Red Blood Count 4.21 M/mm3 (4.2-5.4); White Blood Count 9.4 K/mm3 (4.5-10.0)
[2025-01-12] MEDS: DOCUSATE SODIUM 100 MG CAPSULE PO (07:56)
[2025-01-12] MEDS: SIMETHICONE 80 MG TAB.CHEW PO (07:57)
--- NOTE | 2025-01-12 08:52 | P.PNOB_ITS ---
RN LABOR AND DELIVERY - A/P Assessment and plan (1) Endometriosis: Code(s): N80.9 - Endometriosis, unspecified Status: Acute Assessment and Plan: A: POD#1, s/p robotic assisted TVHBS. Doing well. P: Home to f/u 2 weeks. (2) Pelvic pain: Code(s): R10.2 - Pelvic and perineal pain Status: Acute (3) HSIL (high grade squamous intraepithelial lesion) on Pap smear of cervix: Code(s): R87.613 - High grade squamous intraepithelial lesion on cytologic smear of cervix (HGSIL) Status: Acute Postoperative Procedures: Procedures Operation Date: 01/11/25 13:00 Actual Procedure Side Surgeon p Robotic Assisted Total Vaginal Hysterectomy with Bilateral Salpingectomy Bilateral Joseph Camacho MD Postoperative day: 1 Time Spent With Patient Time with patient: less than 15 minutes RN LABOR AND DELIVERY- PN:Subj Post-Op Subjective Date/time seen: 01/12/25 08:52 Interval history: Pain OK. Tolerating diet. Voiding. Would like to go home. Exam 2 Narrative: AVSS I/O OK ABD soft, nontender. Incisions c/d/i. EXT nontender RN LABOR AND DELIVERY - PN: Obj Data Vital Signs Vital Signs: Vital Signs - 24 hr 01/11/25 10:37 01/11/25 15:01 01/11/25 15:15 Temperature 37.2 C 36.4 C L Pulse Rate 77 108 H 102 H Respiratory Rate 18 19 16 Blood Pressure 106/57 L 110/73 117/76 Pulse Oximetry 99 100 100 Oxygen Delivery Room Air Simple Face Mask Simple Face Mask Oxygen Flow Rate 8 8 01/11/25 15:30 01/11/25 15:45 01/11/25 16:00 Temperature 36.7 C Pulse Rate 100 93 93 Respiratory Rate 16 13 13 Blood Pressure 117/85 117/85 117/85 Pulse Oximetry 100 100 100 Oxygen Delivery Simple Face Mask Room Air Room Air Oxygen Flow Rate 8 01/11/25 16:15 01/11/25 16:30 01/11/25 16:40 Temperature 36.6 C Pulse Rate 95 95 89 Respiratory Rate 12 12 18 Blood Pressure 114/77 114/77 114/78 Pulse Oximetry 95 95 98 Oxygen Delivery Room Air Room Air Oxygen Flow Rate 01/11/25 16:40 01/11/25 20:00 01/11/25 21:00 Temperature 36.8 C Pulse Rate 86 Respiratory Rate 18 Blood Pressure 116/69 Pulse Oximetry 96 Oxygen Delivery Room Air Room Air Oxygen Flow Rate 01/12/25 04:00 Temperature 36.4 C Pulse Rate 82 Respiratory Rate 16 Blood Pressure 112/60 Pulse Oximetry 98 Oxygen Delivery Oxygen Flow Rate Intake/Output Intake/Output: Intake & Output 01/09/25 01/10/25 01/11/25 01/12/25 23:59 23:59 23:59 23:59 Intake Total 950 Output Total 1900 250 Balance -950 -250 Meds/Results Medications: Active Medications Generic Name Dose Route Start Last Admin Trade Name Freq PRN Reason Stop Dose Admin Acetaminophen 1,000 mg 01/11/25 18:00 01/12/25 06:23 Acetaminophen 500 Mg Tablet PO 1,000 mg Q6HR GARRY Administration Albuterol 2 puff 01/11/25 16:38 Albuterol Sulfate (*Sp) Aerosol 1 Puff INHALATION Q4HRT PRN shortness of breath or wheezing Cyclobenzaprine HCl 10 mg 01/11/25 16:38 Cyclobenzaprine Hcl 10 Mg Tablet PO TID PRN muscle spasm Docusate Sodium 100 mg 01/11/25 17:00 01/12/25 07:56 Docusate Sodium 100 Mg Capsule PO 100 mg BID GARRY Administration Enoxaparin Sodium 40 mg 01/11/25 21:00 01/11/25 21:45 Enoxaparin 40 Mg/0.4 Ml Syringe SUB-Q 40 mg Q24H GARRY Administration Fluoxetine HCl 80 mg 01/12/25 09:00 Fluoxetine Hcl 20 Mg Capsule PO DAILY [facility] Gabapentin 300 mg 01/11/25 17:00 01/11/25 17:48 Gabapentin 300 Mg Capsule PO 300 mg BID GARRY Administration Ibuprofen 600 mg 01/12/25 12:00 Ibuprofen 600 Mg Tablet PO Q6HR [facility] Loratadine 10 mg 01/12/25 09:00 Loratadine 10 Mg Tablet PO QAM [facility] Morphine Sulfate 4 mg 01/11/25 16:38 01/12/25 07:53 Morphine Sulfate (*Crx) 4 Mg/Ml Inj IV PUSH 4 mg Q4H PRN Administration Breakthrough Pain Rated 7-10 or NPO Naloxone HCl 0.1 mg 01/11/25 16:38 Naloxone Hcl 0.4 Mg/Ml Vial IV PUSH Q2M PRN Respiratory rate less than 10 Oxycodone HCl 5 mg 01/11/25 16:38 Oxycodone Hcl (*Crx) 5 Mg Tab Ir PO Q4H PRN Pain Rated 4-6 Oxycodone HCl 10 mg 01/11/25 16:38 01/12/25 03:53 Oxycodone Hcl (*Crx) 5 Mg Tab Ir PO 10 mg Q6H PRN Administration Pain Rated 7-10 Pantoprazole Sodium 40 mg 01/12/25 06:30 01/12/25 06:25 Pantoprazole 40 Mg Tablet PO Not Given DAILY@0630 [facility] Simethicone 80 mg 01/11/25 17:00 01/12/25 07:57 Simethicone 80 Mg Tab.Chew PO 80 mg TIDWM GARRY Administration Labs 01/12/25 03:55 Labs: Laboratory Results - last 24 hr 01/11/25 01/12/25 11:49 03:55 WBC 9.4 RBC 4.21 Hgb 12.9 Hct 39.9 MCV 94.8 MCH 30.6 MCHC 32.3 RDW 12.0 Plt Count 217 MPV 9.8 Immature Gran % (Auto) 0.3 Neut % (Auto) 82.0 H Lymph % (Auto) 12.1 L [place] % (Auto) 5.5 Eos % (Auto) 0.0 Baso % (Auto) 0.1 L Lymph # (Auto) 1.14 [place] # (Auto) 0.5 Eos # (Auto) 0.0 Baso # (Auto) 0.0 Abs Immat Gran (auto) 0.03 Absolute Neuts (auto) 7.7 H Absolute Nucleated RBC 0.000 Nucleated RBC % 0.0 POC Urine HCG, Qual Negative
[2025-01-12 09:05] VITALS: BP 96/57; PULSE 82; RESP 18; TEMP 36.8; O2SAT 97
--- NOTE | 2025-01-12 09:18 | P.PNAN_ITS ---
Anes - Prog Note Post-Op Date/Time: 01/12/25 09:18 Cardiovascular status: normal Respiratory status: normal Airway patency: baseline Mental status: baseline Post-Op hydration status: normal Vital Signs: Last Vital Signs Temp 36.4 C 01/12/25 04:00 Pulse 82 01/12/25 04:00 Resp 16 01/12/25 04:00 BP 112/60 01/12/25 04:00 Pulse Ox 98 01/12/25 04:00 O2 Del Method Room Air 01/11/25 21:00 O2 Flow Rate 8 01/11/25 15:30 Pain Score (VAS): 10/31 I/O: Intake & Output 01/11/25 01/12/25 01/12/25 23:59 07:59 15:59 Output Total 1900 250 Balance -1900 -250 Laboratory Tests 01/12/25 03:55 01/11/25 01/12/25 11:49 03:55 WBC 9.4 RBC 4.21 Hgb 12.9 Hct 39.9 MCV 94.8 MCH 30.6 MCHC 32.3 RDW 12.0 Plt Count 217 MPV 9.8 Immature Gran % (Auto) 0.3 Neut % (Auto) 82.0 H Lymph % (Auto) 12.1 L [place] % (Auto) 5.5 Eos % (Auto) 0.0 Baso % (Auto) 0.1 L Lymph # (Auto) 1.14 [place] # (Auto) 0.5 Eos # (Auto) 0.0 Baso # (Auto) 0.0 Abs Immat Gran (auto) 0.03 Absolute Neuts (auto) 7.7 H Absolute Nucleated RBC 0.000 Nucleated RBC % 0.0 POC Urine HCG, Qual Negative Post-procedural complaints: none Patient Feedback: Patient satisfied with anesthetic care.
== END 2025-01-12 09:46 | disposition home or self-care (01) ==
LOC: ANHSURGERY 14:59 → ANHOB2 17:24
PROVIDERS: PCP Nurse Practitioner Family; Visit Provider Obstetrics & Gynecology
PROC: (CPT 58552; principal; 2025-01-11 13:00)
DX: R10.2 Pelvic and perineal pain (principal); R87.613 High grade squamous intraepithelial lesion on cytologic smear of cervix (HGSIL); Z97.5 Presence of (intrauterine) contraceptive device; Z87.42 Personal history of other diseases of the female genital tract
CPT/HCPCS: 58552; S2900; 36415; 85025; 88307; 99199; A9270; J0690; J1171; J1200; J1650; J1885; J2250; J2270; J2405; J3010; J7120